=== PATIENT | male | born 1995 | race Caucasian/White ===

== ENCOUNTER 2018-02-07 17:59 | Emergency (ER) | payer OTHER ==
[2018-02-07 18:03] VITALS: TEMP 97.9
[2018-02-07] MEDS ORDERED: SODIUM CHLORIDE 0.9% 1,000 ML IV STA (19:49)
[2018-02-07] MEDS ORDERED: ONDANSETRON 4 MG/2 ML VIAL IVP STA (19:49)
[2018-02-07] MEDS ORDERED: FAMOTIDINE 20 MG/2 ML VIAL IV STA (19:49)
--- NOTE | 2018-02-07 19:52 | ED ---
Abdominal Pain HPI - General Chief Complaint: Abdominal Pain Stated Complaint: VOMITING, SORE THROAT AND CHEST PAIN Time Seen by Provider: 02/07/18 19:42 Source: patient Mode of arrival: ambulatory Limitations: no limitations - History of Present Illness Initial Comments: 22-year-old male patient presents to the emergency department today for evaluation of vomiting and upper abdominal pain. Patient states that he has been vomiting since yesterday evening. States that he had several episodes of vomiting throughout the night and it continued until 5 PM today. Patient states that his vomitus contained a black material. He denies any constipation or diarrhea. Denies any hematochezia or melena. Denies any fevers or chills. Denies any recent travel or ingestion of questionable foods. Patient denies any history of acid reflux. Patient is tolerating Mountain Dew in the room at this time. Patient denies any recent rash, shortness breath, chest pain, back pain, numbness, tingling, dizziness, weakness, hematuria, dysuria, urinary urgency, urinary frequency, headache, visual changes, or any other complaints. - Related Data Home Medications Medication Instructions Recorded Confirmed ALPRAZolam [Xanax] 0.5 mg PO DAILY PRN 02/07/18 02/07/18 Previous Rx's Medication Instructions Recorded Omeprazole [PriLOSEC] 20 mg PO AC-BRKFST #30 cap 02/07/18 Ondansetron [Zofran ODT] 4 mg PO Q8HR PRN #10 tab 02/07/18 Allergies Allergy/AdvReac Type Severity Reaction Status Date / Time No Known Allergies Allergy Verified 02/07/18 19:50 Review of Systems ROS Statement: Those systems with pertinent positive or pertinent negative responses have been documented in the HPI. ROS Other: All systems not noted in ROS Statement are negative. Past Medical History Past Medical History: No Reported History Additional Past Medical History / Comment(s): scolosis History of Any Multi-Drug Resistant Organisms: None Reported Past Surgical History: Appendectomy Past Psychological History: ADD/ADHD, Anxiety, Depression Smoking Status: Current every day smoker Past Alcohol Use History: Rare Past Drug Use History: Marijuana General Exam Limitations: no limitations General appearance: alert, in no apparent distress, other (This is a well- developed, well-nourished adult male patient in no acute distress. Vital signs upon presentation are temperature 97.9F, pulse 77, respirations 18, blood pressure 141/89, pulse ox 95% on room air.) Eye exam: Present: normal appearance, PERRL, EOMI. Absent: scleral icterus, conjunctival injection, periorbital swelling ENT exam: Present: normal exam, normal oropharynx, mucous membranes moist Respiratory exam: Present: normal lung sounds bilaterally. Absent: respiratory distress, wheezes, rales, rhonchi, stridor Cardiovascular Exam: Present: regular rate, normal rhythm, normal heart sounds. Absent: systolic murmur, diastolic murmur, rubs, gallop, clicks GI/Abdominal exam: Present: soft, normal bowel sounds. Absent: distended, tenderness, guarding, rebound, rigid Neurological exam: Present: alert, oriented X3, CN II-XII intact Psychiatric exam: Present: normal affect, normal mood Skin exam: Present: warm, dry, intact, normal color. Absent: rash Course Vital Signs 02/07/18 02/07/18 18:01 23:15 Temperature 97.9 F Pulse Rate 77 65 Respiratory 18 16 Rate Blood Pressure 141/89 142/89 O2 Sat by Pulse 95 98 Oximetry Medical Decision Making - Medical Decision Making 22-year-old male patient percents to the emergency department today for evaluation of upper abdominal pain and vomiting. Physical examination did reveal some mild midepigastric tenderness. Labs reviewed and showed a white blood cell count of 19.2, platelet count of 531, glucose 105, lipase of 499. Urine showed 1+ protein, 2+ ketones, 1+ bilirubin, rare bacteria, and few mucus. We did perform ultrasound of the upper abdomen which showed no acute abnormalities. I did discuss findings with the patient and discussed that he most likely has a mild pancreatitis. At this time patient denies any significant alcohol intake, states last time he drank any alcohol was new years Kim. Patient will be discharged home with instructions to increase fluids. He is instructed to follow-up with a drapery hanger for further evaluation. Patient will also be given Prilosec once daily. He is instructed to return here immediately for any new, worsening, or concerning symptoms. He verbalizes understanding and agrees with this plan. - Lab Data Result diagrams: 02/07/18 19:47 02/07/18 19:47 Lab Results 02/07/18 02/07/18 02/07/18 Range/Units 19:47 19:47 19:47 WBC 19.2 H (4.0-11.0) k/uL RBC 5.54 (4.30-5.90) m/uL Hgb 15.9 (13.0-17.5) gm/dL Hct 46.0 (39.0-53.0) % MCV 83.0 (80.0-100.0) fL MCH 28.7 (25.0-35.0) pg MCHC 34.6 (31.0-37.0) g/dL RDW 12.8 (11.5-15.5) % Plt Count 531 H (150-450) k/uL Neutrophils % 81 % Lymphocytes % 13 % Monocytes % 5 % Eosinophils % 1 % Basophils % 0 % Neutrophils # 15.5 H (1.3-7.7) k/uL Lymphocytes # 2.4 (1.0-4.8) k/uL Monocytes # 0.9 (0-1.0) k/uL Eosinophils # 0.2 (0-0.7) k/uL Basophils # 0.0 (0-0.2) k/uL Sodium 143 (137-145) mmol/L Potassium 3.9 (3.5-5.1) mmol/L Chloride 98 (98-107) mmol/L Carbon Dioxide 28 (22-30) mmol/L Anion Gap 17 mmol/L BUN 11 (9-20) mg/dL Creatinine 0.98 (0.66-1.25) mg/dL Est GFR (CKD-EPI)AfAm >90 (>60 ml/min/1.73 sqM) Est GFR (CKD-EPI)NonAf >90 (>60 ml/min/1.73 sqM) Glucose 105 H (74-99) mg/dL Calcium 10.2 (8.4-10.2) mg/dL Total Bilirubin 0.9 (0.2-1.3) mg/dL AST 19 (17-59) U/L ALT 28 (21-72) U/L Alkaline Phosphatase 73 (38-126) U/L Total Protein 8.0 (6.3-8.2) g/dL Albumin 4.8 (3.5-5.0) g/dL Amylase 109 (30-110) U/L Lipase 499 H (23-300) U/L Urine Color Yellow Urine Appearance Clear (Clear) Urine pH 6.0 (5.0-8.0) Ur Specific Singer 1.025 (1.001-1.035) Urine Protein 1+ H (Negative) Urine Glucose (UA) Negative (Negative) Urine Ketones 2+ H (Negative) Urine Blood Negative (Negative) Urine Nitrite Negative (Negative) Urine Bilirubin 1+ H (Negative) Urine Urobilinogen 3.0 (<2.0) mg/dL Ur Leukocyte Esterase Negative (Negative) Urine RBC <1 (0-5) /hpf Urine WBC 1 (0-5) /hpf Ur Squamous Epith Cells <1 (0-4) /hpf Urine Bacteria Rare H (None) /hpf Hyaline Casts 1 (0-2) /lpf Urine Mucus Few H (None) /hpf - Radiology Data Radiology results: report reviewed, image reviewed Ultrasound of the abdomen was performed. Report was reviewed in its entirety. Impression by Dr. Ryan shows negative right upper quadrant abdominal sonogram. No gallstones or dilated ducts. Disposition Clinical Impression: Pancreatitis Disposition: HOME SELF-CARE Condition: Good Instructions: Pancreatitis (ED) Additional Instructions: Increase fluids. Follow-up is as possible for recheck. Return here immediately for any new, worsening, or concerning symptoms. Prescriptions: Omeprazole [PriLOSEC] 20 mg PO AC-BRKFST #30 cap Ondansetron [Zofran ODT] 4 mg PO Q8HR PRN #10 tab PRN Reason: Nausea Is patient prescribed a controlled substance at d/c from ED?: No Referrals: Lisa Tomlinson MD [Primary Care Provider] - 1-2 days Elyssa Moody MD [STAFF PHYSICIAN] - 1-2 days Time of Disposition: 23:01
[2018-02-07 20:01] LABS: Basophils % (A) 0 %; Eosinophils # (A) 0.2 k/uL (0-0.7); Eosinophils % (A) 1 %; HGB 15.9 gm/dL (13.0-17.5); Lymphocytes # (A) 2.4 k/uL (1.0-4.8); Lymphocytes % (A) 13 %; MCH 28.7 pg (25.0-35.0); MCHC 34.6 g/dL (31.0-37.0); Monocytes # (A) 0.9 k/uL (0-1.0); Monocytes % (A) 5 %; Neutrophils # (A) 15.5 k/uL (1.3-7.7); Neutrophils % (A) 81 %; Platelet Count 531 k/uL (150-450); RBC 5.54 m/uL (4.30-5.90); RDW 12.8 % (11.5-15.5); WBC 19.2 k/uL (4.0-11.0)
[2018-02-07 20:04] LABS: Appearance,Urine Clear (Clear); Bacteria,Urine Rare /hpf; Bilirubin,Urine 1+ (Negative); Blood,Urine Negative (Negative); Color,Urine Yellow; Glucose,Urine (UA) Negative (Negative); Hyaline Casts,Urine 1 /lpf (0-2); Ketones,Urine 2+ (Negative); Leukocyte Esterase,Urine Negative (Negative); Mucus,Urine Few /hpf; Nitrite,Urine Negative (Negative); Protein,Urine 1+ (Negative); RBC,Urine <1 /hpf (0-5); Specific Gravity,Urine 1.025 (1.001-1.035); Squamous Epithelial Cell,Urine <1 /hpf (0-4); WBC,Urine 1 /hpf (0-5)
[2018-02-07 20:15] LABS: ALT 28 U/L (21-72); AST 19 U/L (17-59); Albumin 4.8 g/dL (3.5-5.0); Alkaline Phosphatase 73 U/L (38-126); Amylase 109 U/L (30-110); Anion Gap 17 mmol/L; Blood Urea Nitrogen 11 mg/dL (9-20); Calcium 10.2 mg/dL (8.4-10.2); Carbon Dioxide 28 mmol/L (22-30); Chloride 98 mmol/L (98-107); Glucose 105 mg/dL (74-99); Lipase 499 U/L (23-300); Potassium 3.9 mmol/L (3.5-5.1); Sodium 143 mmol/L (137-145); Total Bilirubin 0.9 mg/dL (0.2-1.3)
--- NOTE | 2018-02-07 22:20 | US ---
EXAMINATION TYPE: US abdomen limited DATE OF EXAM: 02/07/2018 COMPARISON: NONE CLINICAL HISTORY: Pain. RUQ pain and vomiting. EXAM MEASUREMENTS: Liver Length: 18.0 cm Gallbladder Wall: 0.3 cm CBD: 0.4 cm Right Kidney: 10.1 x 4.2 x 4.0 cm Pancreas: Tail obscured by overlying bowel gas Liver: Increased attenuation Gallbladder: appears anechoic Evidence for sonographic Morejon's sign: No CBD: wnl Right Kidney: No hydronephrosis or masses seen IMPRESSION: Negative right upper quadrant abdominal sonogram. No gallstones or dilated ducts.
[2018-02-07] MEDS ORDERED: KETOROLAC 30 MG/ML 1 ML VIAL IVP STA (22:27)
[2018-02-07] MEDS ORDERED: ONDANSETRON 4 MG ODT STARTER PACK 2 TAB BTL PO STA (23:01)
[2018-02-07 23:15] VITALS: BP 142/89; PULSE 65; RESP 16
== END 2018-02-07 23:20 | disposition home or self-care (01) ==
LOC: EC 17:59
DX: K85.90 Acute pancreatitis without necrosis or infection, unspecified (principal); F17.200 Nicotine dependence, unspecified, uncomplicated
CPT/HCPCS: 99284; 96374; 96375 ×2; 96361; 36415; 80053; 82150; 83690; 85025; 81001; 76705; J2405; J1885; S0119

== ENCOUNTER 2018-07-31 05:36 | Emergency (ER) | payer OTHER ==
[2018-07-31] MEDS ORDERED: ALBUTEROL NEBULIZED 2.5 MG/3 ML INHALATION STA (06:25)
[2018-07-31] MEDS ORDERED: FAMOTIDINE 20 MG/2 ML VIAL IV STA (06:25)
--- NOTE | 2018-07-31 06:29 | ED ---
General Adult HPI - General Source: patient Mode of arrival: ambulatory Limitations: no limitations - History of Present Illness -: hour(s) Severity scale (1-10): 0 Improves with: none Worsens with: none Associated Symptoms: cough, nausea/vomiting Treatments Prior to Arrival: none <Adam Waters - Last Filed: 07/31/18 06:25> <Dante Jaffe - Last Filed: 07/31/18 07:45> - General Chief complaint: GI Bleed Stated complaint: Vomiting Blood Time Seen by Provider: 07/31/18 06:19 - History of Present Illness Initial comments: This patient is a 22-year-old man who presents after he had vomiting with what he describes as coffee-ground material and was concerned about GI bleeding. The patient states that he was feeling like he may have some bronchitis going on. He has had congestion, cough, and a little bit of wheezing. He also has had a few episodes of posttussive emesis and then tonight at work had one of these that involved in a coffee-ground material. Patient denies abdominal pain. No change in bowel movements. No dark tarry stools. (Adam Waters) - Related Data Home Medications Medication Instructions Recorded Confirmed ALPRAZolam [Xanax] 0.5 mg PO DAILY PRN 02/07/18 02/07/18 Previous Rx's Medication Instructions Recorded Omeprazole [PriLOSEC] 20 mg PO AC-BRKFST #30 cap 02/07/18 Ondansetron [Zofran ODT] 4 mg PO Q8HR PRN #10 tab 02/07/18 Famotidine [Pepcid] 20 mg PO BID #30 tablet 07/31/18 Allergies Allergy/AdvReac Type Severity Reaction Status Date / Time No Known Allergies Allergy Verified 07/31/18 05:54 Review of Systems ROS Other: All systems not noted in ROS Statement are negative. Constitutional: Denies: fever, chills, weakness Respiratory: Reports: cough, wheezes. Denies: dyspnea, hemoptysis Cardiovascular: Denies: chest pain, palpitations, syncope Gastrointestinal: Reports: hematemesis. Denies: abdominal pain, nausea, diarrhea, melena, hematochezia Genitourinary: Denies: dysuria, hematuria Musculoskeletal: Denies: back pain Skin: Denies: rash Neurological: Denies: headache <JtAdam - Last Filed: 07/31/18 06:25> ROS Other: All systems not noted in ROS Statement are negative. <Dante Jaffe - Last Filed: 07/31/18 07:45> ROS Statement: Those systems with pertinent positive or pertinent negative responses have been documented in the HPI. Past Medical History Past Medical History: No Reported History Additional Past Medical History / Comment(s): scoliosis, History of Any Multi-Drug Resistant Organisms: None Reported Past Surgical History: Appendectomy Past Psychological History: ADD/ADHD, Anxiety, Depression Smoking Status: Current every day smoker Past Alcohol Use History: Occasional Past Drug Use History: Marijuana <JtAdam - Last Filed: 07/31/18 06:25> General Exam Limitations: no limitations General appearance: alert, in no apparent distress Head exam: Present: atraumatic, normocephalic Eye exam: Present: normal appearance. Absent: scleral icterus, conjunctival injection ENT exam: Present: normal oropharynx Neck exam: Present: normal inspection Respiratory exam: Present: wheezes. Absent: respiratory distress, rales, rhonchi, stridor Cardiovascular Exam: Present: regular rate, normal rhythm, normal heart sounds. Absent: systolic murmur, diastolic murmur, rubs, gallop GI/Abdominal exam: Present: soft. Absent: distended, tenderness, guarding, rebound, mass Extremities exam: Present: normal inspection, normal capillary refill. Absent: pedal edema, calf tenderness Back exam: Present: normal inspection. Absent: CVA tenderness (R), CVA tenderness (L) Neurological exam: Present: alert Skin exam: Present: warm, dry, intact, normal color, rash (There is tinea versicolor to the bilateral shoulders.) <JtAdam - Last Filed: 07/31/18 06:25> Vital Signs 07/31/18 07/31/18 07/31/18 05:49 07:16 07:28 Temperature 99.5 F Pulse Rate 88 92 92 Respiratory 17 Rate Blood Pressure 136/81 O2 Sat by Pulse 99 Oximetry Medical Decision Making <JtAdam - Last Filed: 07/31/18 06:25> - Lab Data Result diagrams: 07/31/18 06:45 10/16/18 06:45 <Dante Jaffe - Last Filed: 07/31/18 07:45> - Medical Decision Making Patient was signed out to me by previous shift physician. Briefly, patient is a 22-year-old male presents with 2 weeks of fatigue and malaise. States that over the past couple days he's been having bouts of coffee-ground emesis. Patient's had about 2-3 episodes. As any epigastric pain. Laboratory evaluation was obtained showing no acute processes. He does however have a mild leukocytosis of 13.8 with thrombocytosis. There is suspicion that there is an acute inflammatory process occurring was likely secondary to stress from vomiting. There is strong clinical suspicion patient is having coffee-ground emesis secondary to ulcer versus gastritis. Basic metabolic panel was obtained. Previous physician ordered Pepcid. X-ray shows no acute processes. Discussed with patient that his findings warrant evaluation by [facility]. Patient states he will follow-up. Told to return if he has any worsening symptoms. (Dante Jaffe) - Lab Data Lab Results 07/31/18 07/31/18 Range/Units 06:45 06:45 WBC 13.8 H (4.0-11.0) k/uL RBC 5.30 (4.30-5.90) m/uL Hgb 14.5 (13.0-17.5) gm/dL Hct 43.9 (39.0-53.0) % MCV 82.8 (80.0-100.0) fL MCH 27.4 (25.0-35.0) pg MCHC 33.1 (31.0-37.0) g/dL RDW 13.7 (11.5-15.5) % Plt Count 480 H (150-450) k/uL Neutrophils % 64 % Lymphocytes % 25 % Monocytes % 5 % Eosinophils % 5 % Basophils % 0 % Neutrophils # 8.9 H (1.3-7.7) k/uL Lymphocytes # 3.4 (1.0-4.8) k/uL Monocytes # 0.7 (0-1.0) k/uL Eosinophils # 0.7 (0-0.7) k/uL Basophils # 0.1 (0-0.2) k/uL Sodium 139 (137-145) mmol/L Potassium 4.3 (3.5-5.1) mmol/L Chloride 108 H (98-107) mmol/L Carbon Dioxide 22 (22-30) mmol/L Anion Gap 9 mmol/L BUN 11 (9-20) mg/dL Creatinine 0.81 (0.66-1.25) mg/dL Est GFR (CKD-EPI)AfAm >90 (>60 ml/min/1.73 sqM) Est GFR (CKD-EPI)NonAf >90 (>60 ml/min/1.73 sqM) Glucose 80 (74-99) mg/dL Calcium 9.9 (8.4-10.2) mg/dL Disposition <Adam Waters - Last Filed: 07/31/18 06:25> Is patient prescribed a controlled substance at d/c from ED?: No Time of Disposition: 07:43 <Dante Jaffe - Last Filed: 07/31/18 07:45> Clinical Impression: Coffee ground emesis Disposition: HOME SELF-CARE Condition: Good Instructions: Gastrointestinal Bleeding (ED) Prescriptions: Famotidine [Pepcid] 20 mg PO BID #30 tablet Referrals: Lisa Tomlinson MD [Primary Care Provider] - 1-2 days Sunil Reynaga MD [STAFF PHYSICIAN] - 1-2 days
[2018-07-31 06:56] LABS: Basophils # (A) 0.1 k/uL (0-0.2); Basophils % (A) 0 %; Eosinophils # (A) 0.7 k/uL (0-0.7); Eosinophils % (A) 5 %; HCT 43.9 % (39.0-53.0); HGB 14.5 gm/dL (13.0-17.5); Lymphocytes # (A) 3.4 k/uL (1.0-4.8); Lymphocytes % (A) 25 %; MCH 27.4 pg (25.0-35.0); MCHC 33.1 g/dL (31.0-37.0); MCV 82.8 fL (80.0-100.0); Monocytes # (A) 0.7 k/uL (0-1.0); Monocytes % (A) 5 %; Neutrophils # (A) 8.9 k/uL (1.3-7.7); Neutrophils % (A) 64 %; Platelet Count 480 k/uL (150-450); RDW 13.7 % (11.5-15.5); WBC 13.8 k/uL (4.0-11.0)
[2018-07-31 07:04] LABS: Anion Gap 9 mmol/L; Blood Urea Nitrogen 11 mg/dL (9-20); Calcium 9.9 mg/dL (8.4-10.2); Carbon Dioxide 22 mmol/L (22-30); Chloride 108 mmol/L (98-107); Glucose 80 mg/dL (74-99); Potassium 4.3 mmol/L (3.5-5.1); Sodium 139 mmol/L (137-145)
--- NOTE | 2018-07-31 07:34 | XR ---
EXAMINATION TYPE: XR chest 2V DATE OF EXAM: 07/31/2018 COMPARISON: NONE HISTORY: Coffee-ground emesis and generalized weakness. TECHNIQUE: Frontal and lateral views of the chest are obtained. FINDINGS: There is no focal air space opacity, pleural effusion, or pneumothorax seen. The cardiac silhouette size is within normal limits. The osseous structures are intact. IMPRESSION: No acute cardiopulmonary process.
[2018-07-31 08:02] VITALS: BP 136/82; PULSE 80; RESP 18; TEMP 98.1
== END 2018-07-31 08:02 | disposition home or self-care (01) ==
LOC: EC 05:36
DX: R11.2 Nausea with vomiting, unspecified (principal); D72.829 Elevated white blood cell count, unspecified; D47.3 Essential (hemorrhagic) thrombocythemia; R05 Cough; R06.2 Wheezing; R09.89 Other specified symptoms and signs involving the circulatory and respiratory systems; F17.200 Nicotine dependence, unspecified, uncomplicated
CPT/HCPCS: 36415; 71046; 80048; 85025; 86850; 86900; 86901; 94640; 96374; 99285

== ENCOUNTER → 2019-01-28 | Outpatient (CLI) | payer OTHER ==
--- NOTE | 2019-01-28 18:10 | US ---
EXAMINATION TYPE: US abdomen limited DATE OF EXAM: 01/28/2019 COMPARISON: CT from 2016 limited abdominal ultrasound February 07, 2018 CLINICAL HISTORY: R10.11 R upper quad pain. RUQ and epigastric pain x 2 weeks. EXAM MEASUREMENTS: Liver Length: 16.8 cm Gallbladder Wall: 0.33 cm CBD: 0.5 cm Right Kidney: 9.9 x 5.6 x 4.0 cm Limited study due to body habitus and bowel gas. Pancreas: Partially obscured by bowel gas. Liver: Increased attenuation Gallbladder: Appears wnl. Internal echoes appear to be artifact. Evidence for sonographic Morejon's sign: No CBD: wnl Right Kidney: No hydronephrosis or masses seen Visualized pancreas shows no mass or ductal dilatation. Visualized liver is heterogeneously hyperecho ic consistent with diffuse fatty infiltration. IVC is seen near hepatic dome. Gallbladder is seen wit hout shadowing mobile gallstones. Limited images right kidney show no gross hydronephrosis. IMPRESSION: Diffuse fatty infiltration of liver redemonstrated. No gallstones or secondary ultrasound evidence for acute cholecystitis.
== END | disposition home or self-care (01) ==
LOC: RADUSMAIN 16:54
PROVIDERS: ATTEND Internal Medicine
DX: K76.0 Fatty (change of) liver, not elsewhere classified (principal)
CPT/HCPCS: 76705

== ENCOUNTER 2021-05-31 07:23 | Emergency (ER) | payer OTHER ==
[2021-05-31 07:30] VITALS: TEMP 97.6
--- NOTE | 2021-05-31 07:55 | ED ---
General Adult HPI - General Chief complaint: Chest Pain Stated complaint: L arm numbness, Chest pain Time Seen by Provider: 05/31/21 07:31 Source: patient Mode of arrival: wheelchair Limitations: no limitations - History of Present Illness Initial comments: Dictation was produced using [employer] dictation software. please excuse any grammatical, word or spelling errors. Chief Complaint: 25-year-old male in no past medical history presents emergency department for chest pain History of Present Illness: Should 25-year-old male who presents emergency department for chest pain. Patient states that he was in his left chest shoulder area and was associated with paresthesias to the left upper extremity. He states he had symptoms yesterday. Denies any symptoms currently. No strong family history of coronary artery disease or heart disease. Patient used to smoke cigarettes. He doesn't take any other medications. Denies any com orbidities. States that his symptoms are not associated with diaphoresis, shortness of breath or nausea. He took 2 aspirins prior to arrival. Patient is worried that he had a heart attack The ROS documented in this emergency department record has been reviewed and confirmed by me. Those systems with pertinent positive or negative responses have been documented in the HPI. All other systems are other negative and/or noncontributory. PHYSICAL EXAM: General Impression: Alert and oriented x3, not in acute distress HEENT: Normocephalic atraumatic, extra-ocular movements intact, pupils equal and reactive to light bilaterally, mucous membranes moist. Cardiovascular: Heart regular rate and rhythm Chest: Able to complete full sentences, no retractions, no tachypnea Abdomen: abdomen soft, non-tender, non-distended, no organomegaly Musculoskeletal: Pulses present and equal in all extremities, no peripheral edema Motor: no focal deficits noted Neurological: CN II-XII grossly intact, no focal motor or sensory deficits noted Skin: Intact with no visualized rashes Psych: Normal affect and mood ED course: 25-year-old well-appearing male presents emergency department for atypical chest pain with typical features. Vital Signs upon arrival are within acceptable limits. Besides some history of tobacco use he does not have any major risk factors. Symptoms are atypical in nature. Weight concerning symptom was paresthesias to the left upper extremity. Patient is not tachycardic and not hypoxic. He does not have any complaints of shortness of breath. EKGs benign. Laboratory evaluation obtained. CBC, coag panel, metabolic panel is negative. Troponin is negative. Patient observed in emergency department for approximately 1 hour 30 minutes. Patient reevaluated at bedside at 8:50 AM found to be stable medical condition. At this point there is no high-risk features. Patient's pain is atypical. Patient will be discharged. EKG interpretation: Ventricular rate 89, normal sinus rhythm, MS interval 162, QRS 80, QTC 411. No MS prolongation, no QTC prolongation, no ST or T-wave changes noted. Overall, this EKG is unremarkable - Related Data Home Medications Medication Instructions Recorded Confirmed Aspirin 324 mg PO ONCE PRN 05/31/21 05/31/21 buPROPion HCL [Wellbutrin SR] 100 mg PO DAILY 05/31/21 05/31/21 Allergies Allergy/AdvReac Type Severity Reaction Status Date / Time No Known Allergies Allergy Verified 05/31/21 08:14 Review of Systems ROS Statement: Those systems with pertinent positive or pertinent negative responses have been documented in the HPI. ROS Other: All systems not noted in ROS Statement are negative. Past Medical History Past Medical History: No Reported History Additional Past Medical History / Comment(s): scoliosis History of Any Multi-Drug Resistant Organisms: None Reported Past Surgical History: Appendectomy Past Psychological History: ADD/ADHD, Anxiety, Depression Smoking Status: Former smoker Past Alcohol Use History: Occasional Past Drug Use History: Marijuana General Exam Limitations: no limitations Course Vital Signs 05/31/21 07:27 Temperature 97.6 F Pulse Rate 84 Respiratory 18 Rate Blood Pressure 136/87 O2 Sat by Pulse 97 Oximetry Medical Decision Making - Lab Data Result diagrams: 05/31/21 07:48 05/31/21 07:48 Lab Results 05/31/21 05/31/21 05/31/21 Range/Units 07:48 07:48 07:48 WBC 11.2 H (3.8-10.6) k/uL RBC 5.03 (4.30-5.90) m/uL Hgb 15.1 (13.0-17.5) gm/dL Hct 44.8 (39.0-53.0) % MCV 89.1 (80.0-100.0) fL MCH 30.0 (25.0-35.0) pg MCHC 33.7 (31.0-37.0) g/dL RDW 13.0 (11.5-15.5) % Plt Count 457 H (150-450) k/uL MPV 6.6 Neutrophils % 65 % Lymphocytes % 24 % Monocytes % 6 % Eosinophils % 3 % Basophils % 0 % Neutrophils # 7.3 (1.3-7.7) k/uL Lymphocytes # 2.6 (1.0-4.8) k/uL Monocytes # 0.7 (0-1.0) k/uL Eosinophils # 0.4 (0-0.7) k/uL Basophils # 0.1 (0-0.2) k/uL PT 10.8 (9.0-12.0) sec INR 1.0 (<1.2) APTT 26.4 (22.0-30.0) sec Sodium 138 (137-145) mmol/L Potassium 4.4 (3.5-5.1) mmol/L Chloride 108 H (98-107) mmol/L Carbon Dioxide 20 L (22-30) mmol/L Anion Gap 10 mmol/L BUN 13 (9-20) mg/dL Creatinine 0.87 (0.66-1.25) mg/dL Est GFR (CKD-EPI)AfAm >90 (>60 ml/min/1.73 sqM) Est GFR (CKD-EPI)NonAf >90 (>60 ml/min/1.73 sqM) Glucose 100 H (74-99) mg/dL Calcium 9.7 (8.4-10.2) mg/dL Magnesium 1.9 (1.6-2.3) mg/dL Total Bilirubin 0.2 (0.2-1.3) mg/dL AST 22 (17-59) U/L ALT 24 (4-49) U/L Alkaline Phosphatase 65 (38-126) U/L Troponin I (0.000-0.034) ng/mL Total Protein 7.0 (6.3-8.2) g/dL Albumin 4.2 (3.5-5.0) g/dL 05/31/21 Range/Units 07:48 WBC (3.8-10.6) k/uL RBC (4.30-5.90) m/uL Hgb (13.0-17.5) gm/dL Hct (39.0-53.0) % MCV (80.0-100.0) fL MCH (25.0-35.0) pg MCHC (31.0-37.0) g/dL RDW (11.5-15.5) % Plt Count (150-450) k/uL MPV Neutrophils % % Lymphocytes % % Monocytes % % Eosinophils % % Basophils % % Neutrophils # (1.3-7.7) k/uL Lymphocytes # (1.0-4.8) k/uL Monocytes # (0-1.0) k/uL Eosinophils # (0-0.7) k/uL Basophils # (0-0.2) k/uL PT (9.0-12.0) sec INR (<1.2) APTT (22.0-30.0) sec Sodium (137-145) mmol/L Potassium (3.5-5.1) mmol/L Chloride (98-107) mmol/L Carbon Dioxide (22-30) mmol/L Anion Gap mmol/L BUN (9-20) mg/dL Creatinine (0.66-1.25) mg/dL Est GFR (CKD-EPI)AfAm (>60 ml/min/1.73 sqM) Est GFR (CKD-EPI)NonAf (>60 ml/min/1.73 sqM) Glucose (74-99) mg/dL Calcium (8.4-10.2) mg/dL Magnesium (1.6-2.3) mg/dL Total Bilirubin (0.2-1.3) mg/dL AST (17-59) U/L ALT (4-49) U/L Alkaline Phosphatase (38-126) U/L Troponin I <0.012 (0.000-0.034) ng/mL Total Protein (6.3-8.2) g/dL Albumin (3.5-5.0) g/dL Disposition Clinical Impression: Chest pain Disposition: HOME SELF-CARE Condition: Good Instructions (If sedation given, give patient instructions): Chest Pain (ED) Is patient prescribed a controlled substance at d/c from ED?: No Referrals: Lisa Tomlinson MD [Primary Care Provider] - 1-2 days
[2021-05-31 07:57] LABS: Basophils # (A) 0.1 k/uL (0-0.2); Basophils % (A) 0 %; Eosinophils # (A) 0.4 k/uL (0-0.7); Eosinophils % (A) 3 %; HCT 44.8 % (39.0-53.0); HGB 15.1 gm/dL (13.0-17.5); Lymphocytes # (A) 2.6 k/uL (1.0-4.8); Lymphocytes % (A) 24 %; MCHC 33.7 g/dL (31.0-37.0); MCV 89.1 fL (80.0-100.0); Mean Platelet Volume 6.6; Monocytes # (A) 0.7 k/uL (0-1.0); Monocytes % (A) 6 %; Neutrophils # (A) 7.3 k/uL (1.3-7.7); Neutrophils % (A) 65 %; Platelet Count 457 k/uL (150-450); RBC 5.03 m/uL (4.30-5.90); WBC 11.2 k/uL (3.8-10.6)
[2021-05-31 08:08] LABS: Partial Thromboplastin Time 26.4 sec (22.0-30.0); Prothrombin Time 10.8 sec (9.0-12.0)
[2021-05-31 08:10] LABS: ALT 24 U/L (4-49); AST 22 U/L (17-59); African American GFR (CKD) >90 (>60 ml/min/1.73 sqM); Albumin 4.2 g/dL (3.5-5.0); Alkaline Phosphatase 65 U/L (38-126); Anion Gap 10 mmol/L; Blood Urea Nitrogen 13 mg/dL (9-20); Calcium 9.7 mg/dL (8.4-10.2); Carbon Dioxide 20 mmol/L (22-30); Chloride 108 mmol/L (98-107); Glucose 100 mg/dL (74-99); Magnesium 1.9 mg/dL (1.6-2.3); Non-African American GFR(CKD) >90 (>60 ml/min/1.73 sqM); Potassium 4.4 mmol/L (3.5-5.1); Sodium 138 mmol/L (137-145); Total Bilirubin 0.2 mg/dL (0.2-1.3)
--- NOTE | 2021-05-31 08:11 | XR ---
EXAMINATION TYPE: XR chest 1V portable DATE OF EXAM: 05/31/2021 Comparison: 05/31/2018 Clinical History: 25-year-old male chest pain Findings: The cardiomediastinal silhouette, aorta, and pulmonary vasculature are within normal limits. Lungs and pleural spaces are clear. Impression: No acute cardiopulmonary process.
[2021-05-31 09:13] VITALS: RESP 16
[2021-05-31 09:19] VITALS: BP 114/72; PULSE 70
== END 2021-05-31 09:19 | disposition home or self-care (01) ==
LOC: EC 07:23
DX: R07.89 Other chest pain (principal); R20.2 Paresthesia of skin; F32.9 Major depressive disorder, single episode, unspecified; F41.9 Anxiety disorder, unspecified; F90.9 Attention-deficit hyperactivity disorder, unspecified type; F12.90 Cannabis use, unspecified, uncomplicated; Z79.899 Other long term (current) drug therapy; Z87.891 Personal history of nicotine dependence; Z79.82 Long term (current) use of aspirin; Z90.49 Acquired absence of other specified parts of digestive tract
CPT/HCPCS: 36415; 71045; 80053; 83735; 84484; 85025; 85610; 85730; 93005; 99285

== ENCOUNTER 2023-08-11 07:18 | Inpatient (IN) | payer OTHER ==
[2023-08-11] MEDS ORDERED: SODIUM CHLORIDE 0.9% 1,000 ML IV STA ×2 (07:50→08:53)
[2023-08-11] MEDS ORDERED: PANTOPRAZOLE 40 MG/10 ML VIAL IVP STA (07:50)
[2023-08-11] MEDS ORDERED: ONDANSETRON 4 MG/2 ML VIAL IVP STA (07:50)
[2023-08-11] MEDS ORDERED: KETOROLAC 15 MG/ML 1 ML VIAL IVP STA (07:50)
--- NOTE | 2023-08-11 07:55 | ED ---
General Adult HPI - General Chief complaint: Abdominal Pain Stated complaint: Lower left abdominal pain Time Seen by Provider: 08/11/23 07:41 Source: patient, RN notes reviewed, old records reviewed Mode of arrival: ambulatory Limitations: no limitations - History of Present Illness Initial comments: Patient is a 28-year-old male who presents emergency Department complaining of left lower quadrant abdominal pain. It's been present more or less constant for the last 3 days. Has been having nausea as well as had 2 episodes of nonbilious nonbloody emesis yesterday. Has a history of an appendectomy. Endorses diarrhea. Endorses a mild cough as well as headache. No known sick contacts. Denies fevers. Denies any difficulty in urination. Did present to urgent care 2 days ago where they performed a urine study which was unremarkable including no blood. Presents emergency department today because they instructed him to present to the ER for evaluation of the pain got worse which did over the last 24 hours. Prescription is an achy pain localized to the left lower quadrant. No radiation. No flank pain. Has some generalized back discomfort but no focal back discomfort. States he is still having nonbloody diarrhea as well as flatus. No concern for constipation. Presents for further evaluation at this time. - Related Data Home Medications Medication Instructions Recorded Confirmed Aspirin 324 mg PO ONCE PRN 05/31/21 05/31/21 buPROPion HCL [Wellbutrin SR] 100 mg PO DAILY 05/31/21 05/31/21 Allergies Allergy/AdvReac Type Severity Reaction Status Date / Time No Known Allergies Allergy Verified 08/11/23 07:39 Review of Systems ROS Statement: Those systems with pertinent positive or pertinent negative responses have been documented in the HPI. Review of Systems: CONST: Denies fever EYES: Denies blurry vision ENT: Denies nasal congestion C/V: Denies Chest pain RESP: Denies shortness of breath GI: Endorses abdominal pain : Denies dysuria SKIN: Denies rash. MSK: Denies joint pain. NEURO: Denies headache ROS Other: All systems not noted in ROS Statement are negative. Past Medical History Past Medical History: No Reported History Additional Past Medical History / Comment(s): scoliosis History of Any Multi-Drug Resistant Organisms: None Reported Past Surgical History: Appendectomy Past Psychological History: ADD/ADHD, Anxiety, Depression Smoking Status: Vaper Past Alcohol Use History: Occasional Past Drug Use History: Marijuana General Exam - General Exam Comments Initial Comments: General: Appears in mild distress secondary to abdominal discomfort HEAD: Normal with no signs of head trauma. EYES: PERRLA, EOMI, conjunctiva normal, no discharge. ENT: Hearing grossly intact, normal oropharynx. RESPIRATORY: Clear breath sounds bilaterally. No wheezes, rales, or rhonchi. C/V: Regular rate and rhythm. S1 and S2 auscultated, peripheral pulses 2+ and intact throughout ABD: Abdomen is soft, nondistended. Tender to palpation in the left lower quadrant. No guarding. No rebound tenderness. No peritoneal signs. No CVA tenderness to percussion. EXT: Normal range of motion, no obvious deformity SKIN: No rashes or lesions observed on exposed skin. NEURO: Alert and oriented 4. Limitations: no limitations Course Vital Signs 08/11/23 08/11/23 07:38 08:53 Temperature 98.1 F 100.3 F H Pulse Rate 110 H 101 H Respiratory 20 17 Rate Blood Pressure 119/69 105/69 O2 Sat by Pulse 99 96 Oximetry Medical Decision Making - Medical Decision Making Was pt. sent in by a medical professional or institution (, PA, HARDWARE TRAINER, urgent care, hospital, or snf...) When possible be specific @ -Instructed by urgent care to present to the emergency department if pain worsens. Did you speak to anyone other than the patient for history (EMS, parent, family, police, friend...)? What history was obtained from this source @ -No Did you review nursing and triage notes (agree or disagree)? Why? @ -I reviewed and agree with nursing and triage notes Were old charts reviewed (outside hosp., previous admission, EMS record, old EKG, old radiological studies, urgent care reports/EKG's, snf records)? Report findings @ -Charts reviewed. Differential Diagnosis (chest pain, altered mental status, abdominal pain women, abdominal pain men, vaginal bleeding, weakness, fever, dyspnea, syncope, headache, dizziness, GI bleed, back pain, seizure, CVA, palpatations, mental health, musculoskeletal)? @ -Differential Abdominal Pain Men: Appendicitis, cholecystitis, diverticulosis, ischemic bowel, pancreatitis, hepatitis, UTI, gastroenteritis, AAA, incarcerated hernia, bowel obstruction, constipation, inflammatory bowel, hepatitis, peptic ulcer disease, splenic infarction, perforated viscus, testicular torsion, this is not meant to be an all-inclusive list EKG interpreted by me (3pts min.). @ -None done X-rays interpreted by me (1pt min.). @ -None done CT interpreted by me (1pt min.). @ -CT abdomen and pelvis reveals diverticulitis with microperforation. U/S interpreted by me (1pt. min.). @ -None done What testing was considered but not performed or refused? (CT, X-rays, U/S, labs)? Why? @ -None What meds were considered but not given or refused? Why? @ -None Did you discuss the management of the patient with other professionals (professionals i.e. , PA, HARDWARE TRAINER, lab, RT, psych nurse, social work supervisor, supervisor dials, teacher, sports development officer, rn case manager)? Give summary @ -I contacted the on-call surgeon, Dr. Justin who accepted the patient onto her service and was in agreement with the plan. Was smoking cessation discussed for >3mins.? @ -No Was critical care preformed (if so, how long)? @ -No Were there social determinants of health that impacted care today? How? (Homelessness, low income, unemployed, alcoholism, drug addiction, transportatio n, low edu. Level, literacy, decrease access to med. care, long term, rehab)? @ -No Was there de-escalation of care discussed even if they declined (Discuss DNR or withdrawal of care, Hospice)? DNR status @ -No What co-morbidities impacted this encounter? (DM, HTN, Smoking, COPD, CAD, Cancer, CVA, ARF, Chemo, Hep., AIDS, mental health diagnosis, sleep apnea, morbid obesity)? @ -None Was patient admitted / discharged? Hospital course, mention meds given and route, prescriptions, significant lab abnormalities, going to OR and other pertinent info. @ -Based on the patient's presentation and physical exam, I'm concerned for acute intra-abdominal process for the patient's current symptoms. We will obtain abdominal laboratory studies, as well as CT abdomen and pelvis. Patient will be administered IV fluids, Zofran, Protonix, Toradol for pain. Vital signs other than mild tachycardia are within acceptable limits. Patient is in agreement with this plan. Patient's laboratory studies are remarkable for leukocytosis of 23. Lactic acid within normal limits. Remainder the labs within acceptable limits. Patient's CT imaging reveals diverticulitis with a microperforation. After the patient. We will obtain blood cultures, as well as to the patient on Zosyn. He'll be made nothing by mouth. He was in agreement this plan. I contacted the on-call surgeon, Dr. Justin who accepted the patient onto her service and was in agreement with the plan. Undiagnosed new problem with uncertain prognosis? @ -No Drug Therapy requiring intensive monitoring for toxicity (Heparin, Nitro, Insulin, Cardizem)? @ -No Were any procedures done? @ -No Diagnosis/symptom? @ -Diverticulitis with microperforation Acute, or Chronic, or Acute on Chronic? @ -Acute Uncomplicated (without systemic symptoms) or Complicated (systemic symptoms)? @ -Complicated Side effects of treatment? @ -none Exacerbation, Progression, or Severe Exacerbation] @ -no Poses a threat to life or bodily function? @ -Yes - Lab Data Result diagrams: 08/11/23 07:58 08/11/23 07:58 Lab Results 08/11/23 08/11/23 08/11/23 Range/Units 07:58 07:58 07:58 WBC 23.7 H (3.8-10.6) k/uL RBC 4.85 (4.30-5.90) m/uL Hgb 14.2 (13.0-17.5) gm/dL Hct 41.9 (39.0-53.0) % MCV 86.5 (80.0-100.0) fL MCH 29.4 (25.0-35.0) pg MCHC 33.9 (31.0-37.0) g/dL RDW 13.1 (11.5-15.5) % Plt Count 455 H (150-450) k/uL MPV 6.9 Neutrophils % 87 % Lymphocytes % 6 % Monocytes % 6 % Eosinophils % 1 % Basophils % 0 % Neutrophils # 20.6 H (1.3-7.7) k/uL Lymphocytes # 1.3 (1.0-4.8) k/uL Monocytes # 1.4 H (0-1.0) k/uL Eosinophils # 0.2 (0-0.7) k/uL Basophils # 0.0 (0-0.2) k/uL PT 12.1 (10.0-12.5) sec INR 1.1 (<1.2) APTT 29.2 (22.0-30.0) sec Sodium (137-145) mmol/L Potassium (3.5-5.1) mmol/L Chloride (98-107) mmol/L Carbon Dioxide (22-30) mmol/L Anion Gap mmol/L BUN (9-20) mg/dL Creatinine (0.66-1.25) mg/dL Est GFR (CKD-EPI)AfAm (>60 ml/min/1.73 sqM) Est GFR (CKD-EPI)NonAf (>60 ml/min/1.73 sqM) Glucose (74-99) mg/dL Plasma Lactic Acid Mitul (0.7-2.0) mmol/L Calcium (8.4-10.2) mg/dL Total Bilirubin (0.2-1.3) mg/dL AST (17-59) U/L ALT (4-49) U/L Alkaline Phosphatase (38-126) U/L Total Protein (6.3-8.2) g/dL Albumin (3.5-5.0) g/dL Amylase (30-110) U/L Lipase (23-300) U/L Urine Color Yellow Urine Appearance Clear (Clear) Urine pH 6.0 (5.0-8.0) Ur Specific Olin 1.020 (1.001-1.035) Urine Protein Trace (Negative) Urine Glucose (UA) Negative (Negative) Urine Ketones 1+ (Negative) Urine Blood Negative (Negative) Urine Nitrite Negative (Negative) Urine Bilirubin Negative (Negative) Urine Urobilinogen <2.0 (<2.0) mg/dL Ur Leukocyte Esterase Negative (Negative) 08/11/23 08/11/23 Range/Units 07:58 07:58 WBC (3.8-10.6) k/uL RBC (4.30-5.90) m/uL Hgb (13.0-17.5) gm/dL Hct (39.0-53.0) % MCV (80.0-100.0) fL MCH (25.0-35.0) pg MCHC (31.0-37.0) g/dL RDW (11.5-15.5) % Plt Count (150-450) k/uL MPV Neutrophils % % Lymphocytes % % Monocytes % % Eosinophils % % Basophils % % Neutrophils # (1.3-7.7) k/uL Lymphocytes # (1.0-4.8) k/uL Monocytes # (0-1.0) k/uL Eosinophils # (0-0.7) k/uL Basophils # (0-0.2) k/uL PT (10.0-12.5) sec INR (<1.2) APTT (22.0-30.0) sec Sodium 136 L (137-145) mmol/L Potassium 4.3 (3.5-5.1) mmol/L Chloride 106 (98-107) mmol/L Carbon Dioxide 19 L (22-30) mmol/L Anion Gap 11 mmol/L BUN 10 (9-20) mg/dL Creatinine 0.72 (0.66-1.25) mg/dL Est GFR (CKD-EPI)AfAm >90 (>60 ml/min/1.73 sqM) Est GFR (CKD-EPI)NonAf >90 (>60 ml/min/1.73 sqM) Glucose 94 (74-99) mg/dL Plasma Lactic Acid Mitul 0.8 (0.7-2.0) mmol/L Calcium 9.2 (8.4-10.2) mg/dL Total Bilirubin 1.0 (0.2-1.3) mg/dL AST 23 (17-59) U/L ALT 36 (4-49) U/L Alkaline Phosphatase 53 (38-126) U/L Total Protein 6.8 (6.3-8.2) g/dL Albumin 3.8 (3.5-5.0) g/dL Amylase 46 (30-110) U/L Lipase 31 (23-300) U/L Urine Color Urine Appearance (Clear) Urine pH (5.0-8.0) Ur Specific Olin (1.001-1.035) Urine Protein (Negative) Urine Glucose (UA) (Negative) Urine Ketones (Negative) Urine Blood (Negative) Urine Nitrite (Negative) Urine Bilirubin (Negative) Urine Urobilinogen (<2.0) mg/dL Ur Leukocyte Esterase (Negative) Disposition Clinical Impression: Diverticulitis Disposition: ADMITTED IP TO THIS HOSP Condition: Stable Referrals: None,Stated [Primary Care Provider] - 1-2 days Time of Disposition: 08:52
[2023-08-11 08:25] LABS: Basophils % (A) 0 %; Eosinophils # (A) 0.2 k/uL (0-0.7); Eosinophils % (A) 1 %; HCT 41.9 % (39.0-53.0); HGB 14.2 gm/dL (13.0-17.5); Lymphocytes # (A) 1.3 k/uL (1.0-4.8); Lymphocytes % (A) 6 %; MCH 29.4 pg (25.0-35.0); MCHC 33.9 g/dL (31.0-37.0); MCV 86.5 fL (80.0-100.0); Mean Platelet Volume 6.9; Monocytes # (A) 1.4 k/uL (0-1.0); Monocytes % (A) 6 %; Neutrophils # (A) 20.6 k/uL (1.3-7.7); Neutrophils % (A) 87 %; Platelet Count 455 k/uL (150-450); RBC 4.85 m/uL (4.30-5.90); RDW 13.1 % (11.5-15.5); WBC 23.7 k/uL (3.8-10.6)
[2023-08-11 08:32] LABS: ALT 36 U/L (4-49); AST 23 U/L (17-59); African American GFR (CKD) >90 (>60 ml/min/1.73 sqM); Albumin 3.8 g/dL (3.5-5.0); Alkaline Phosphatase 53 U/L (38-126); Amylase 46 U/L (30-110); Anion Gap 11 mmol/L; Blood Urea Nitrogen 10 mg/dL (9-20); Calcium 9.2 mg/dL (8.4-10.2); Carbon Dioxide 19 mmol/L (22-30); Chloride 106 mmol/L (98-107); Glucose 94 mg/dL (74-99); Lipase 31 U/L (23-300); Non-African American GFR(CKD) >90 (>60 ml/min/1.73 sqM); Potassium 4.3 mmol/L (3.5-5.1); Sodium 136 mmol/L (137-145); Total Protein 6.8 g/dL (6.3-8.2)
--- NOTE | 2023-08-11 08:51 | CT ---
EXAMINATION TYPE: CT abdomen pelvis w con CT DLP: 1527.6 mGycm, Automated exposure control for dose reduction was used. DATE OF EXAM: 08/11/2023 8:35 AM COMPARISON: 12/24/2015 CLINICAL INDICATION:Male, 28 years old with history of abdominal pain, LLQ; LLQ pain TECHNIQUE: Axial CT of the ;CT abdomen pelvis w con;Sagittal and coronal reformats were created on a separate workstation. Contrast used:100 mL of Isovue 300 with IV Contrast, (none if empty) Oral contrast used: without Oral Contrast (none if empty) FINDINGS: LOWER CHEST: Unremarkable ABDOMEN LIVER: Diffusely hypoattenuating parenchyma. GALLBLADDER AND BILE DUCTS: Unremarkable. PANCREAS: Unremarkable. SPLEEN: Unremarkable. ADRENAL GLANDS: Unremarkable. KIDNEYS AND URETERS: No evidence of hydronephrosis or renal calculus. The ureters are unremarkable. PELVIS BLADDER: Unremarkable REPRODUCTIVE: Unremarkable. ABDOMEN & PELVIS STOMACH AND BOWEL: No evidence of bowel obstruction. Sigmoid colon wall thickening with diverticula. There is fat stranding changes around these do diverticula with microperforation with small focus of gas PERITONEUM/RETROPERITONEUM: Small focus of pneumoperitoneum near the acute diverticulitis. No organiz ing fluid collections. VASCULATURE: No evidence of aortic aneurysm. MUSCULOSKELETAL: No acute osseous abnormalities LYMPH NODES: No gross evidence for lymphadenopathy. SOFT TISSUE/ABDOMINAL WALL: Fat-containing umbilical hernia. IMPRESSION: 1. Sigmoid colon diverticulitis with microperforation. No organizing fluid collection at this time. 2. Hepatic steatosis.
[2023-08-11 08:54] LABS: Appearance,Urine Clear (Clear); Bilirubin,Urine Negative (Negative); Color,Urine Yellow; Glucose,Urine (UA) Negative (Negative); INR 1.1 (<1.2); Ketones,Urine 1+ (Negative); Partial Thromboplastin Time 29.2 sec (22.0-30.0); Protein,Urine Trace (Negative); Prothrombin Time 12.1 sec (10.0-12.5)
[2023-08-11] MEDS ORDERED: ACETAMINOPHEN TAB 500 MG TAB PO STA (08:54)
[2023-08-11 08:55] LABS: Blood,Urine Negative (Negative); Leukocyte Esterase,Urine Negative (Negative); Nitrite,Urine Negative (Negative); Urobilinogen,Urine <2.0 mg/dL (<2.0)
[2023-08-11] MEDS ORDERED: NALOXONE 0.4 MG/ML 1 ML VIAL IV PRN (09:02)
[2023-08-11] MEDS ORDERED: ACETAMINOPHEN TAB 325 MG TAB PO PRN (09:02)
[2023-08-11] MEDS ORDERED: ONDANSETRON 4 MG/2 ML VIAL IVP PRN (09:02)
[2023-08-11] MEDS: PIPERACILLIN-TAZOBACTAM 3.375 GM in SODIUM CHLORIDE 0.9% 100 ML IVPB SCH ×2 (09:32→16:37)
[2023-08-11] MEDS: MORPHINE SULFATE 4 MG/ML SYRINGE IV PRN ×3 (10:22→19:46)
--- NOTE | 2023-08-11 10:23 | P.GSHP ---
History of Present Illness H&P Date: 08/11/23 CHIEF COMPLAINT: Left lower quadrant abdominal pain HISTORY OF PRESENT ILLNESS: This is a 28-year-old male who presented to hospital with complaints of left lower quadrant abdominal pain 3 days. He also has been having some nausea and vomiting. He reports not having a bowel movement for 4 days. He reports that his stools are very usually diarrhea since the age of 15. He denies any blood in his stools. Denies any prior history of diverticulitis. He has never had a colonoscopy. No family history of diverticulitis, Crohn's or ulcerative colitis. Patient had a computed tomography scan abdomen and pelvis that showed evidence of sigmoid diverticulitis with microperforation. He has a low-grade fever, mildly tachycardic and elevated white count. He is started on IV antibiotics IV fluids. Admitted to surgical service for diverticulitis with microperforation. PAST MEDICAL HISTORY: See list. PAST SURGICAL HISTORY: Appendectomy MEDICATIONS: See list. ALLERGIES: See list. SOCIAL HISTORY: No illicit drug use. vaps. Occasional alcohol use REVIEW OF SYSTEMS: CONSTITUTIONAL: Denies fever or chills. HEENT: Denies blurred vision, vision changes, or eye pain. Denies hemoptysis ENDOCRINE: Denies heat or cold intolerance. CARDIOVASCULAR: Denies chest pain or pressure. RESPIRATORY: No shortness of breath. GASTROINTESTINAL: Denies abdominal pain. Denies nausea or vomiting. NEURO: Denies history of seizures. PSYCH: No depression or suicidal ideation HEMATOLOGIC: Denies bleeding disorders. LYMPHATIC: The patient denies any lumps and bumps around the neck. GENITOURINARY: Denies any blood in urine or increased urinary frequency. MUSCULOSKELETAL: Denies myalgias. Denies joint swelling. Denies decreased range of motion beyond patients baseline. SKIN: Denies pruitis. Denies rash. PHYSICAL EXAM: VITAL SIGNS: Reviewed GENERAL: Well-developed in no acute distress. HEENT: No sclera icterus. Extraocular movements grossly intact. Moist buccal mucosa. Head is atraumatic, normocephalic. Hears conversational speech. No nasal drainage. NECK: Supple without lymphadenopathy. CHEST: Non-labored respirations and equal bilateral excursions. CARDIOVASCULAR: Palpable 2+ radial pulses. ABDOMEN: Soft. Nondistended. Tenderness to palpation in the left lower quadra nt MUSCULOSKELETAL: No clubbing or cyanosis. NEUROLOGIC: No focal or lateralizing signs. Cranial nerves II through XII grossly intact. PSYCH: Appropriate affect. Alert and oriented to person, place and time. SKIN: Well perfused. Good skin turgor. LABORATORY DATA: WBC 20.7 Hgb 14.2 platelets 455 Sodium 136 potassium 4.3 creatinine 0.72 Urinalysis negative Influenza, RSV and COVID-19 not detected IMAGING: Computed tomography scan abdomen and pelvis reports sigmoid colon diverticulitis with microperforation. No organizing fluid collection at this time. Hepatic steatosis. ASSESSMENT: 1. Sigmoid colon diverticulitis with microperforation 2. Sepsis 3. History of chronic diarrhea PLAN: -Continue to monitor patient closely -Continue IV antibiotic management at this time and add IV Flagyl -Continue IV fluids -Keep patient nothing by mouth except ice chips and popsicles -Repeat labs in a.m. -DVT prophylaxis subcu heparin and GI prophylaxis pepcid Physician Closing Manager note has been reviewed by physician. Signing provider agrees with the documented findings, assessment, and plan of care. Past Medical History Past Medical History: No Reported History Additional Past Medical History / Comment(s): scoliosis History of Any Multi-Drug Resistant Organisms: None Reported Past Surgical History: Appendectomy Past Psychological History: ADD/ADHD, Anxiety, Depression Smoking Status: Vaper Past Alcohol Use History: Occasional Past Drug Use History: Marijuana Medications and Allergies Home Medications Medication Instructions Recorded Confirmed Type No Known Home Medications 08/11/23 08/11/23 History Allergies Allergy/AdvReac Type Severity Reaction Status Date / Time No Known Allergies Allergy Verified 08/11/23 09:11 Surgical - Exam Vital Signs Temp Pulse Resp BP Pulse Ox 98.1 F 110 H 20 119/69 99 08/11/23 07:38 08/11/23 07:38 08/11/23 07:38 08/11/23 07:38 08/11/23 07:38 Results - Labs 08/11/23 07:58 08/11/23 07:58 Abnormal Lab Results - Last 24 Hours (Table) 08/11/23 08/11/23 Range/Units 07:58 07:58 WBC 23.7 H (3.8-10.6) k/uL Plt Count 455 H (150-450) k/uL Neutrophils # 20.6 H (1.3-7.7) k/uL Monocytes # 1.4 H (0-1.0) k/uL Sodium 136 L (137-145) mmol/L Carbon Dioxide 19 L (22-30) mmol/L Diabetes panel 08/11/23 Range/Units 07:58 Sodium 136 L (137-145) mmol/L Potassium 4.3 (3.5-5.1) mmol/L Chloride 106 (98-107) mmol/L Carbon Dioxide 19 L (22-30) mmol/L BUN 10 (9-20) mg/dL Creatinine 0.72 (0.66-1.25) mg/dL Glucose 94 (74-99) mg/dL Calcium 9.2 (8.4-10.2) mg/dL AST 23 (17-59) U/L ALT 36 (4-49) U/L Alkaline Phosphatase 53 (38-126) U/L Total Protein 6.8 (6.3-8.2) g/dL Albumin 3.8 (3.5-5.0) g/dL Calcium panel 08/11/23 Range/Units 07:58 Calcium 9.2 (8.4-10.2) mg/dL Albumin 3.8 (3.5-5.0) g/dL Pituitary panel 08/11/23 Range/Units 07:58 Sodium 136 L (137-145) mmol/L Potassium 4.3 (3.5-5.1) mmol/L Chloride 106 (98-107) mmol/L Carbon Dioxide 19 L (22-30) mmol/L BUN 10 (9-20) mg/dL Creatinine 0.72 (0.66-1.25) mg/dL Glucose 94 (74-99) mg/dL Calcium 9.2 (8.4-10.2) mg/dL Adrenal panel 08/11/23 Range/Units 07:58 Sodium 136 L (137-145) mmol/L Potassium 4.3 (3.5-5.1) mmol/L Chloride 106 (98-107) mmol/L Carbon Dioxide 19 L (22-30) mmol/L BUN 10 (9-20) mg/dL Creatinine 0.72 (0.66-1.25) mg/dL Glucose 94 (74-99) mg/dL Calcium 9.2 (8.4-10.2) mg/dL Total Bilirubin 1.0 (0.2-1.3) mg/dL AST 23 (17-59) U/L ALT 36 (4-49) U/L Alkaline Phosphatase 53 (38-126) U/L Total Protein 6.8 (6.3-8.2) g/dL Albumin 3.8 (3.5-5.0) g/dL
[2023-08-11] MEDS: SODIUM CHLORIDE 0.9% 1,000 ML IV SCH ×2 (10:27→18:45)
[2023-08-11] MEDS: metroNIDAZOLE-NS PMX 500 MG in SALINE 1 100ML.BAG IVPB SCH ×2 (14:54→19:48)
[2023-08-11] MEDS: KETOROLAC 15 MG/ML 1 ML VIAL IVP PRN ×2 (16:32→22:53)
[2023-08-11] MEDS: HEPARIN SODIUM,PORCINE 5,000 UNIT/ML 1 ML VIAL SQ SCH (16:35)
[2023-08-12] MEDS: metroNIDAZOLE-NS PMX 500 MG in SALINE 1 100ML.BAG IVPB SCH ×5 (01:15→23:56)
[2023-08-12] MEDS: HEPARIN SODIUM,PORCINE 5,000 UNIT/ML 1 ML VIAL SQ SCH ×2 (01:15→08:16)
[2023-08-12] MEDS: PIPERACILLIN-TAZOBACTAM 3.375 GM in SODIUM CHLORIDE 0.9% 100 ML IVPB SCH ×3 (01:17→17:07)
[2023-08-12] MEDS: SODIUM CHLORIDE 0.9% 1,000 ML IV SCH ×3 (01:55→17:44)
[2023-08-12] MEDS: FAMOTIDINE 20 MG/2 ML VIAL IV SCH (08:16)
[2023-08-12] MEDS: MORPHINE SULFATE 4 MG/ML SYRINGE IV PRN ×3 (08:16→16:12)
[2023-08-12 09:46] LABS: Blood Urea Nitrogen 10.8 mg/dL (9.0-27.0); Calcium 8.9 mg/dL (8.7-10.3); Carbon Dioxide 20.2 mmol/L (21.6-31.8); Chloride 108 mmol/L (96-109); Glucose 79 mg/dL (70-110); Potassium 4.3 mmol/L (3.5-5.5); Sodium 140 mmol/L (135-145)
[2023-08-12 10:17] LABS: Basophils # (A) 0.03 X 10*3/uL (0.00-0.10); Basophils % (A) 0.2 %; Eosinophils # (A) 0.38 X 10*3/uL (0.04-0.35); Eosinophils % (A) 2.7 %; HCT 38.4 % (39.6-50.0); HGB 12.6 d/dL (13.0-17.0); Lymphocytes # (A) 1.64 X 10*3/uL (0.90-5.00); Lymphocytes % (A) 11.6 %; MCH 28.7 pg (27.0-32.0); MCHC 32.8 d/dL (32.0-37.0); MCV 87.5 FL (80.0-97.0); Mean Platelet Volume 9.2 FL (9.5-12.2); Monocytes # (A) 1.45 X 10*3/uL (0.20-1.00); Monocytes % (A) 10.3 %; NRBC Per 100 WBC 0 X 10*3/uL (0.00-0.01); Neutrophils # (A) 10.55 X 10*3/uL (1.80-7.70); Neutrophils % (A) 74.8 %; Platelet Count 377 X 10*3/uL (140-440); RBC 4.39 X 10*6/uL (4.40-5.60); RDW 13.3 % (11.5-14.5); WBC 14.11 X 10*3/uL (4.50-10.00)
[2023-08-12] MEDS: KETOROLAC 15 MG/ML 1 ML VIAL IVP PRN (11:44)
--- NOTE | 2023-08-12 13:32 | P.PN ---
Subjective Progress Note Date: 08/12/23 Reports abdominal pain wax and wane. WBC trending down. Fever abated. Continue antibiotics. Will start clear liquid diet pending improvement of abdominal pain. Non-narcotic pain adjustment. CBC and BMP ordered. Continue flagyl and zosyn. Objective - Vital Signs Vital signs: Vital Signs Temp 98.2 F 08/12/23 08:00 Pulse 87 08/12/23 08:00 Resp 16 08/12/23 08:00 BP 142/87 08/12/23 08:00 Pulse Ox 97 08/12/23 08:00 FiO2 Intake & Output 08/11/23 08/12/23 08/12/23 18:59 06:59 18:59 Weight 106.594 kg 106.594 kg Other: # Voids 0 - Labs CBC & Chem 7: 08/12/23 04:35 08/12/23 04:35 Labs: Abnormal Lab Results - Last 24 Hours (Table) 08/12/23 08/12/23 Range/Units 04:35 04:35 WBC 14.11 H (4.50-10.00) X 10*3/uL RBC 4.39 L (4.40-5.60) X 10*6/uL Hgb 12.6 L (13.0-17.0) d/dL Hct 38.4 L (39.6-50.0) % MPV 9.2 L (9.5-12.2) FL Neutrophils # 10.55 H (1.80-7.70) X 10*3/uL Monocytes # 1.45 H (0.20-1.00) X 10*3/uL Eosinophils # 0.38 H (0.04-0.35) X 10*3/uL Carbon Dioxide 20.2 L (21.6-31.8) mmol/L
[2023-08-12] MEDS ORDERED: HYDROmorphone 1 MG/ML 1 ML SYRINGE IVP PRN (13:33)
[2023-08-12] MEDS: ACETAMINOPHEN IV (For NPO) 1,000 MG in EMPTY BAG 1 BAG IVPB SCH ×2 (14:49→19:37)
[2023-08-12] MEDS: KETOROLAC 15 MG/ML 1 ML VIAL IVP SCH ×2 (17:39→23:56)
[2023-08-12] MEDS ORDERED: ONDANSETRON 4 MG/2 ML VIAL IM STA (22:38)
[2023-08-12] MEDS ORDERED: ONDANSETRON 4 MG/2 ML VIAL IVP STA (22:52)
[2023-08-13] MEDS: ACETAMINOPHEN IV (For NPO) 1,000 MG in EMPTY BAG 1 BAG IVPB SCH ×2 (01:00→07:57)
[2023-08-13] MEDS: PIPERACILLIN-TAZOBACTAM 3.375 GM in SODIUM CHLORIDE 0.9% 100 ML IVPB SCH ×3 (01:00→17:27)
[2023-08-13] MEDS: SODIUM CHLORIDE 0.9% 1,000 ML IV SCH ×4 (01:01→20:20)
[2023-08-13] MEDS: metroNIDAZOLE-NS PMX 500 MG in SALINE 1 100ML.BAG IVPB SCH ×2 (05:31→11:57)
[2023-08-13] MEDS: KETOROLAC 15 MG/ML 1 ML VIAL IVP SCH ×4 (05:32→17:26)
[2023-08-13] MEDS: FAMOTIDINE 20 MG/2 ML VIAL IV SCH (07:57)
[2023-08-13] MEDS: ONDANSETRON 4 MG/2 ML VIAL IVP PRN ×2 (07:57→18:05)
[2023-08-13 09:40] LABS: BUN/Creat Ratio 10.11 Ratio (12.00-20.00); Blood Urea Nitrogen 9.1 mg/dL (9.0-27.0); Calcium 9.3 mg/dL (8.7-10.3); Carbon Dioxide 20.6 mmol/L (21.6-31.8); Chloride 107 mmol/L (96-109); Glucose 70 mg/dL (70-110); Potassium 4.3 mmol/L (3.5-5.5); Sodium 140 mmol/L (135-145)
[2023-08-13 09:47] LABS: Basophils # (A) 0.04 X 10*3/uL (0.00-0.10); Basophils % (A) 0.4 %; Eosinophils # (A) 0.34 X 10*3/uL (0.04-0.35); Eosinophils % (A) 3.3 %; HGB 13.2 d/dL (13.0-17.0); Lymphocytes # (A) 1.41 X 10*3/uL (0.90-5.00); Lymphocytes % (A) 13.8 %; MCH 28.5 pg (27.0-32.0); MCV 86.4 FL (80.0-97.0); Mean Platelet Volume 8.7 FL (9.5-12.2); Monocytes # (A) 0.81 X 10*3/uL (0.20-1.00); Monocytes % (A) 7.9 %; NRBC Per 100 WBC 0 X 10*3/uL (0.00-0.01); Neutrophils # (A) 7.58 X 10*3/uL (1.80-7.70); Neutrophils % (A) 74.3 %; Platelet Count 462 X 10*3/uL (140-440); RBC 4.63 X 10*6/uL (4.40-5.60); RDW 13.2 % (11.5-14.5); WBC 10.21 X 10*3/uL (4.50-10.00)
--- NOTE | 2023-08-13 12:43 | P.PN ---
Subjective Progress Note Date: 08/13/23 He has no further fevers. Has nausea with flagyl. WBC near normal. Stopped flagyl. Start clear liquid diet. Continue hospitalization with disposition 24 hrs to 48 hrs. Objective - Vital Signs Vital signs: Vital Signs Temp 98.7 F 08/13/23 07:52 Pulse 51 L 08/13/23 07:52 Resp 15 08/13/23 07:52 BP 127/83 08/13/23 07:52 Pulse Ox 100 08/13/23 07:52 FiO2 Intake & Output 08/12/23 08/13/23 08/13/23 18:59 06:59 18:59 Intake Total 0 Balance 0 Intake: Oral 0 Other: # Voids 3 2 - Labs CBC & Chem 7: 08/13/23 05:41 08/13/23 05:41 Labs: Abnormal Lab Results - Last 24 Hours (Table) 08/13/23 08/13/23 Range/Units 05:41 05:41 WBC 10.21 H (4.50-10.00) X 10*3/uL Plt Count 462 H (140-440) X 10*3/uL MPV 8.7 L (9.5-12.2) FL Carbon Dioxide 20.6 L (21.6-31.8) mmol/L Anion Gap 12.40 H (4.00-12.00) mmol/L BUN/Creatinine Ratio 10.11 L (12.00-20.00) Ratio Microbiology - Last 24 Hours (Table) 08/11/23 08:58 Blood Culture - Preliminary Blood 08/11/23 08:58 Blood Culture - Preliminary Blood
[2023-08-13] MEDS ORDERED: SCOPOLAMINE 1 MG/72 HR PATCH TRANSDERM SCH (21:00)
[2023-08-14] MEDS: KETOROLAC 15 MG/ML 1 ML VIAL IVP SCH ×3 (00:03→12:27)
[2023-08-14] MEDS: PIPERACILLIN-TAZOBACTAM 3.375 GM in SODIUM CHLORIDE 0.9% 100 ML IVPB SCH ×2 (00:03→12:27)
[2023-08-14] MEDS: SODIUM CHLORIDE 0.9% 1,000 ML IV SCH (05:40)
[2023-08-14 09:05] LABS: BUN/Creat Ratio 10.88 Ratio (12.00-20.00); Basophils # (A) 0.03 X 10*3/uL (0.00-0.10); Basophils % (A) 0.3 %; Blood Urea Nitrogen 8.7 mg/dL (9.0-27.0); Calcium 9.1 mg/dL (8.7-10.3); Carbon Dioxide 20.1 mmol/L (21.6-31.8); Chloride 107 mmol/L (96-109); Eosinophils # (A) 0.26 X 10*3/uL (0.04-0.35); Eosinophils % (A) 2.9 %; Glucose 72 mg/dL (70-110); HGB 12.6 d/dL (13.0-17.0); Lymphocytes # (A) 1.51 X 10*3/uL (0.90-5.00); Lymphocytes % (A) 16.9 %; MCH 28.2 pg (27.0-32.0); MCHC 33.2 d/dL (32.0-37.0); Mean Platelet Volume 8.7 FL (9.5-12.2); Monocytes # (A) 0.71 X 10*3/uL (0.20-1.00); NRBC Per 100 WBC 0 X 10*3/uL (0.00-0.01); Neutrophils # (A) 6.38 X 10*3/uL (1.80-7.70); Neutrophils % (A) 71.6 %; Platelet Count 458 X 10*3/uL (140-440); Potassium 4.4 mmol/L (3.5-5.5); RBC 4.47 X 10*6/uL (4.40-5.60); RDW 12.8 % (11.5-14.5); Sodium 140 mmol/L (135-145); WBC 8.92 X 10*3/uL (4.50-10.00)
[2023-08-14] MEDS: IOPAMIDOL CONTRAST (ORAL USE) VIAL PO PRN ×2 (09:57→11:10)
[2023-08-14] MEDS: FAMOTIDINE 20 MG/2 ML VIAL IV SCH (09:57)
[2023-08-14] MEDS: ONDANSETRON 4 MG/2 ML VIAL IVP PRN (10:11)
--- NOTE | 2023-08-14 12:58 | CT ---
EXAMINATION TYPE: CT abdomen pelvis w con CT DLP: 1531.4 mGycm, Automated exposure control for dose reduction was used. DATE OF EXAM: 08/14/2023 12:50 PM COMPARISON: CT abdomen pelvis most recent from 08/11/2023. CLINICAL INDICATION:Male, 28 years old with history of abdominal pain; F/U diverticulitis, with micro perf TECHNIQUE: Standard CT of the abdomen and pelvis following the administration of 100 cc of Isovue 3 00 IV contrast material and oral contrast. Coronal and sagittal reformats were performed. FINDINGS: LOWER CHEST: Unremarkable ABDOMEN LIVER: Diffusely hypoattenuating parenchyma. GALLBLADDER AND BILE DUCTS: Unremarkable. PANCREAS: Unremarkable. SPLEEN: Unremarkable. ADRENAL GLANDS: Unremarkable. KIDNEYS AND URETERS: No evidence of hydronephrosis or renal calculus. The ureters are unremarkable. PELVIS BLADDER: Unremarkable REPRODUCTIVE: Unremarkable. ABDOMEN & PELVIS STOMACH AND BOWEL: No evidence of bowel obstruction. Sigmoid colon wall thickening with diverticula r edemonstrated. There is again stranding fat stranding which is slightly decreased from prior examinat ion. Similar few foci of extraluminal gas posterior to the sigmoid colon (series 201, image 66). No o rganized fluid collection to suggest abscess. Enteric contrast reaches the rectum. No extravasation o f enteric contrast. PERITONEUM/RETROPERITONEUM: Small focus of pneumoperitoneum near the acute diverticulitis. No organiz ing fluid collections. VASCULATURE: No evidence of aortic aneurysm. MUSCULOSKELETAL: No acute osseous abnormalities LYMPH NODES: No gross evidence for lymphadenopathy. SOFT TISSUE/ABDOMINAL WALL: Fat-containing umbilical hernia. IMPRESSION: 1. Redemonstration of sigmoid colon colon diverticulitis with microperforation. No organizing fluid collection at this time. Slightly decreased surrounding inflammatory changes from prior exam. 2. Hepatic steatosis.
--- NOTE | 2023-08-14 14:31 | P.PN ---
Progress Note - Text Progress Note Date: 08/14/23 Patient has been hospitalized from 08/11/2023 until 08/14/2023. Patient to remain off of work until seen by surgeon on 08/22/2023.
--- NOTE | 2023-08-14 14:34 | P.DS ---
Providers Date of admission: 08/11/23 09:02 Expected date of discharge: 08/14/23 Attending physician: Lorena Owens Primary care physician: Stated None Hospital Course: Discharge diagnosis 1. Sigmoid colon diverticulitis with microperforation 2. Sepsis Hospital course This is a 28-year-old male who presented to hospital with complaints of left lower quadrant abdominal pain 3 days. Patient had a computed tomography scan abdomen and pelvis that showed evidence of sigmoid diverticulitis with microperforation. He has a low-grade fever, mildly tachycardic and elevated white count. Patient started on IV antibiotics. Patient's pain has improved. White count has normalized. He is afebrile. He is tolerating diet. He had a repeat computed tomography scan that redemonstrated sigmoid colon diverticulitis with microperforation. No organizing fluid collection at this time. Slightly decreased surrounding inflammatory changes from prior exam. Patient is stable for discharge. He will be discharged with oral antibiotics. Physician Cab Worker note has been reviewed by physician. Signing provider agrees with the documented findings, assessment, and plan of care. Patient Condition at Discharge: Stable Plan - Discharge Summary New Discharge Prescriptions: New Acetaminophen Tab [Tylenol] 1,000 mg PO Q6HR PRN #30 tablet PRN Reason: Pain Amoxic-Pot Clav 875-125Mg [Augmentin 875-125] 1 tab PO Q12HR 10 Days #20 tab Discharge Medication List Acetaminophen Tab [Tylenol] 1,000 mg PO Q6HR PRN #30 tablet 08/14/23 [Rx] Amoxic-Pot Clav 875-125Mg [Augmentin 875-125] 1 tab PO Q12HR 10 Days #20 tab 08/14/23 [Rx] Follow up Appointment(s)/Referral(s): Lorena Owens MD [STAFF PHYSICIAN] - 08/22/23 None,Stated [Primary Care Provider] - 1-2 days Activity/Diet/Wound Care/Special Instructions: Continue a low fiber diet Avoid eating seeds or nuts Patient to remain off of work until seen by surgeon on 08/22/23 Discharge Disposition: HOME SELF-CARE
[2023-08-14 15:11] VITALS: BP 155/89; PULSE 52; RESP 18; TEMP 98.9
== END 2023-08-14 17:31 | disposition home or self-care (01) | DRG 720 ==
LOC: EC 07:18 → 4SSUR 09:02
PROVIDERS: ADMIT Surgery Plastic and Reconstructive Surgery; ATTEND Surgery Plastic and Reconstructive Surgery
DX: A41.9 Sepsis, unspecified organism (principal); K57.20 Diverticulitis of large intestine with perforation and abscess without bleeding; M41.9 Scoliosis, unspecified; F90.9 Attention-deficit hyperactivity disorder, unspecified type; F41.9 Anxiety disorder, unspecified; F32.A Depression, unspecified
CPT/HCPCS: 36415; 74177; 80048; 80053; 81003; 82150; 83605; 83690; 85025; 85610; 85730; 87040; 87636; 96361; 96365; 96366; 96367; 96368; 96372; 96375; 96376; 99285

== ENCOUNTER 2024-03-28 14:31 | Emergency (ER) | payer OTHER ==
[2024-03-28 14:43] VITALS: TEMP 98.8
--- NOTE | 2024-03-28 14:44 | ED ---
Abdominal Pain HPI - General Source: patient, RN notes reviewed Mode of arrival: ambulatory Limitations: no limitations <Marsha Aguilar - Last Filed: 03/28/24 14:43> - General Source: RN notes reviewed, old records reviewed Mode of arrival: ambulatory Limitations: no limitations - History of Present Illness MD Complaint: abdominal pain -: days(s) Location: diffuse, periumbilical, RLQ Radiation: suprapubic Migration to: suprapubic Severity: moderate Severity scale (1-10): 5 Quality: stabbing, aching Consistency: constant Improves With: nothing Worsens With: nothing, vomiting Associated Symptoms: nausea, vomiting, diarrhea Treatments Prior to Arrival: other (0) <Angel Jones - Last Filed: 04/09/24 00:13> - General Stated Complaint: Divirticulitis Time Seen by Provider: 03/28/24 14:43 - History of Present Illness Initial Comments: Quick note: 28-year-old male presenting to the ER with a chief complaint of right-sided abdominal pain. Patient reports this been going on for the past 3 days and endorses associated constipation and diarrhea. He also admits to nausea. Patient has a past medical history significant of diverticulitis and states this pain does feel similar. Denies any fevers but does report chills. (Marsha Aguilar) This is a 28-year-old male to ER for evaluation abdominal pain severe flank pain with inflammation over the lower abdomen right-sided abdominal pain with history of diverticulitis feels like it is return of diverticulitis (Angel Jones) - Related Data Previous Rx's Medication Instructions Recorded Acetaminophen Tab [Tylenol] 1,000 mg PO Q6HR PRN #30 tablet 08/14/23 Amoxic-Pot Clav 875-125Mg 1 tab PO Q12HR 10 Days #20 tab 08/14/23 [Augmentin 875-125] Amoxic-Pot Clav 875-125Mg 1 tab PO Q12HR #20 tablet 03/28/24 [Augmentin 875-125] Allergies Allergy/AdvReac Type Severity Reaction Status Date / Time No Known Allergies Allergy Verified 03/28/24 14:42 Review of Systems ROS Other: All systems not noted in ROS Statement are negative. <Marsha Aguilar - Last Filed: 03/28/24 14:43> ROS Other: All systems not noted in ROS Statement are negative. <Angel Jones - Last Filed: 04/09/24 00:13> ROS Statement: Those systems with pertinent positive or pertinent negative responses have been documented in the HPI. Past Medical History Past Medical History: No Reported History Additional Past Medical History / Comment(s): scoliosis History of Any Multi-Drug Resistant Organisms: None Reported Past Surgical History: Appendectomy Past Psychological History: ADD/ADHD, Anxiety, Depression Smoking Status: Vaper Past Alcohol Use History: Occasional Past Drug Use History: Marijuana <Marsha Aguilar - Last Filed: 03/28/24 14:43> General Exam Limitations: no limitations <Marsha Aguilar - Last Filed: 03/28/24 14:43> General appearance: alert, in no apparent distress Head exam: Present: atraumatic, normocephalic, normal inspection Eye exam: Present: normal appearance, PERRL, EOMI. Absent: scleral icterus, conjunctival injection, periorbital swelling ENT exam: Present: normal exam, mucous membranes moist Neck exam: Present: normal inspection. Absent: tenderness, meningismus, lymphadenopathy Respiratory exam: Present: normal lung sounds bilaterally. Absent: respiratory distress, wheezes, rales, rhonchi, stridor Cardiovascular Exam: Present: regular rate, normal rhythm, normal heart sounds. Absent: systolic murmur, diastolic murmur, rubs, gallop, clicks GI/Abdominal exam: Present: soft, normal bowel sounds. Absent: distended, tenderness, guarding, rebound, rigid Extremities exam: Present: normal inspection, full ROM, normal capillary refill. Absent: tenderness, pedal edema, joint swelling, calf tenderness Back exam: Present: normal inspection Neurological exam: Present: alert, oriented X3, CN II-XII intact Psychiatric exam: Present: normal affect, normal mood Skin exam: Present: warm, dry, intact, normal color. Absent: rash <Angel Jones - Last Filed: 04/09/24 00:13> - General Exam Comments Initial Comments: Visual Physical Exam Vital signs reviewed General: Well-appearing, nontoxic, no acute distress. Head: Normocephalic, atraumatic Eyes: PERRLA, EOMI ENT: Airway patent Chest: Nonlabored breathing Skin: No visual rash, normal skin tone Neuro: Alert and oriented 3 Musculoskeletal: No gross abnormalities (Marsha Aguilar) Course <Angel Jones - Last Filed: 04/09/24 00:13> Vital Signs 03/28/24 03/28/24 14:41 21:53 Temperature 98.8 F Pulse Rate 96 91 Respiratory 16 18 Rate Blood Pressure 134/90 142/87 O2 Sat by Pulse 100 99 Oximetry - Reevaluation(s) Reevaluation #1: 03/28/24 20:40 Medical records reviewed (Angel Jones) Reevaluation #2: 03/28/24 20:40 Patient symptoms are improved here in the emergency department (Angel Chand) Reevaluation #3: 03/28/24 20:40 Patient informed of results and questions answered (Angel Jones) Reevaluation #4: Was pt. sent in by a medical professional or institution (, PA, SIDE GLUER, urgent care, hospital, or penitentiary...) When possible be specific @ -no Did you speak to anyone other than the patient for history (EMS, parent, family, police, friend...)? What history was obtained from this source @ -no Did you review nursing and triage notes (agree or disagree)? Why? @ -agree Are old charts reviewed (outside hosp., previous admission, EMS record, old EKG, old radiological studies, urgent care reports/EKG's, penitentiary records)? Report findings @ -yes Differential Diagnosis (chest pain, altered mental status, abdominal pain women, abdominal pain men, vaginal bleeding, weakness, fever, dyspnea, syncope, headache, dizziness, GI bleed, back pain, seizure, CVA, palpatations, mental h ealth, musculoskeletal)? @ -prior EKG interpreted by me (3pts min.). @ -yes X-rays interpreted by me (1pt min.). @ -no CT interpreted by me (1pt min.). @ -yes positive for acute diverticulitis U/S interpreted by me (1pt. min.). @ -no What testing was considered but not performed or refused? (CT, X-rays, U/S, labs)? Why? @ -none What meds were considered but not given or refused? Why? @ -none Did you discuss the management of the patient with other professionals (professionals i.e. , PA, SIDE GLUER, lab, RT, psych nurse, social work lecturer, mattress weaver, teacher, county records management officer, caseworker)? Give summary @ -no Was smoking cessation discussed for >3mins.? @ -no Was critical care preformed (if so, how long)? @ -no Were there social determinants of health that impacted care today? How? (Homelessness, low income, unemployed, alcoholism, drug addiction, transportation, low edu. Level, literacy, decrease access to med. care, [facility], rehab)? @ -none Was there de-escalation of care discussed even if they declined (Discuss DNR or withdrawal of care, Hospice)? DNR status @ -no What co-morbidities impacted this encounter? (DM, HTN, Smoking, COPD, CAD, Cancer, CVA, ARF, Chemo, Hep., AIDS, mental health diagnosis, sleep apnea, morbid obesity)? @ -none Was patient admitted / discharged? Hospital course, mention meds given and route, prescriptions, significant lab abnormalities, going to OR and other pertinent info. @ - 28 male with diverticulitis, symptoms are improved here in the ER, patient can be discharged home Discharge Undiagnosed new problem with uncertain prognosis? @ -no Drug Therapy requiring intensive monitoring for toxicity (Heparin, Nitro, Insulin, Cardizem)? @ -no Were any procedures done? @ -no Diagnosis/symptom? @ -Acute diverticulitis Acute, or Chronic, or Acute on Chronic? @ -Acute Uncomplicated (without systemic symptoms) or Complicated (systemic symptoms)? @ -Complicated Side effects of treatment? @ -no Exacerbation, Progression, or Severe Exacerbation? @ -exacerbation Poses a threat to life or bodily function? How? (Chest pain, [place], [place], pneumonia, PE, COPD, DKA, ARF, appy, cholecystitis, CVA, Diverticulitis, Homicidal, Suicidal, threat to staff... and all critical care pts) @ -no (Angel Jones) Reevaluation #5: Differential Abdominal Pain Men: Appendicitis, cholecystitis, diverticulosis, ischemic bowel, pancreatitis, hepatitis, UTI, gastroenteritis, AAA, incarcerated hernia, bowel obstruction, co nstipation, inflammatory bowel, hepatitis, peptic ulcer disease, splenic infarction, perforated viscus, testicular torsion, this is not meant to be an all-inclusive list (Angel Jones) Medical Decision Making <Marsha Aguilar - Last Filed: 03/28/24 14:43> - Lab Data Result diagrams: 03/28/24 15:50 03/28/24 15:50 - Radiology Data Radiology results: report reviewed (CT Abdomen pelvis positive for diverticulitis), image reviewed <Angel Jones - Last Filed: 04/09/24 00:13> - Medical Decision Making I performed the quick note portion of this chart. Electronically signed by Marsha Aguilar PA-C (Marsha Aguilar) 28 male with diverticulitis, symptoms are improved here in the ER, patient can be discharged home (Angel Jones) - Lab Data Lab Results 03/28/24 03/28/24 03/28/24 Range/Units 15:50 15:50 15:50 WBC 10.9 H (3.8-10.6) k/uL RBC 5.29 (4.30-5.90) m/uL Hgb 15.2 (13.0-17.5) gm/dL Hct 47.7 (39.0-53.0) % MCV 90.1 (80.0-100.0) fL MCH 28.8 (25.0-35.0) pg MCHC 32.0 (31.0-37.0) g/dL RDW 13.0 (11.5-15.5) % Plt Count 442 (150-450) k/uL MPV 6.8 Neutrophils % 73 % Lymphocytes % 15 % Monocytes % 9 % Eosinophils % 2 % Basophils % 0 % Neutrophils # 8.0 H (1.3-7.7) k/uL Lymphocytes # 1.6 (1.0-4.8) k/uL Monocytes # 1.0 (0-1.0) k/uL Eosinophils # 0.2 (0-0.7) k/uL Basophils # 0.0 (0-0.2) k/uL Sodium 137 (137-145) mmol/L Potassium 4.5 (3.5-5.1) mmol/L Chloride 104 (98-107) mmol/L Carbon Dioxide 25 (22-30) mmol/L Anion Gap 8 mmol/L BUN 8 L (9-20) mg/dL Creatinine 1.00 (0.66-1.25) mg/dL Est GFR (CKD-EPI)AfAm >90 (>60 ml/min/1.73 sqM) Est GFR (CKD-EPI)NonAf >90 (>60 ml/min/1.73 sqM) Glucose 85 (74-99) mg/dL Plasma Lactic Acid Mitul 1.0 (0.7-2.0) mmol/L Calcium 9.8 (8.4-10.2) mg/dL Total Bilirubin 0.6 (0.2-1.3) mg/dL AST 26 (17-59) U/L ALT 45 (4-49) U/L Alkaline Phosphatase 55 (38-126) U/L Total Protein 7.4 (6.3-8.2) g/dL Albumin 4.5 (3.5-5.0) g/dL Amylase 51 (30-110) U/L Lipase 39 (23-300) U/L Urine Color Urine Appearance (Clear) Urine pH (5.0-8.0) Ur Specific [place] (1.001-1.035) Urine Protein (Negative) Urine Glucose (UA) (Negative) Urine Ketones (Negative) Urine Blood (Negative) Urine Nitrite (Negative) Urine Bilirubin (Negative) Urine Urobilinogen (<2.0) mg/dL Ur Leukocyte Esterase (Negative) 03/28/24 Range/Units 20:13 WBC (3.8-10.6) k/uL RBC (4.30-5.90) m/uL Hgb (13.0-17.5) gm/dL Hct (39.0-53.0) % MCV (80.0-100.0) fL MCH (25.0-35.0) pg MCHC (31.0-37.0) g/dL RDW (11.5-15.5) % Plt Count (150-450) k/uL MPV Neutrophils % % Lymphocytes % % Monocytes % % Eosinophils % % Basophils % % Neutrophils # (1.3-7.7) k/uL Lymphocytes # (1.0-4.8) k/uL Monocytes # (0-1.0) k/uL Eosinophils # (0-0.7) k/uL Basophils # (0-0.2) k/uL Sodium (137-145) mmol/L Potassium (3.5-5.1) mmol/L Chloride (98-107) mmol/L Carbon Dioxide (22-30) mmol/L Anion Gap mmol/L BUN (9-20) mg/dL Creatinine (0.66-1.25) mg/dL Est GFR (CKD-EPI)AfAm (>60 ml/min/1.73 sqM) Est GFR (CKD-EPI)NonAf (>60 ml/min/1.73 sqM) Glucose (74-99) mg/dL Plasma Lactic Acid Mitul (0.7-2.0) mmol/L Calcium (8.4-10.2) mg/dL Total Bilirubin (0.2-1.3) mg/dL AST (17-59) U/L ALT (4-49) U/L Alkaline Phosphatase (38-126) U/L Total Protein (6.3-8.2) g/dL Albumin (3.5-5.0) g/dL Amylase (30-110) U/L Lipase (23-300) U/L Urine Color Colorless Urine Appearance Clear (Clear) Urine pH 6.0 (5.0-8.0) Ur Specific [place] 1.001 (1.001-1.035) Urine Protein Negative (Negative) Urine Glucose (UA) Negative (Negative) Urine Ketones Negative (Negative) Urine Blood Negative (Negative) Urine Nitrite Negative (Negative) Urine Bilirubin Negative (Negative) Urine Urobilinogen <2.0 (<2.0) mg/dL Ur Leukocyte Esterase Negative (Negative) Disposition <Marsha Aguilar - Last Filed: 03/28/24 14:43> Is patient prescribed a controlled substance at d/c from ED?: No Time of Disposition: 20:50 <Angel Jones - Last Filed: 04/09/24 00:13> Clinical Impression: Diverticulitis Disposition: HOME SELF-CARE Condition: Fair Instructions (If sedation given, give patient instructions): Diverticulitis (ED) Prescriptions: Amoxic-Pot Clav 875-125Mg [Augmentin 875-125] 1 tab PO Q12HR #20 tablet Referrals: None,Stated [Primary Care Provider] - 1-2 days
[2024-03-28 16:14] LABS: ALT 45 U/L (4-49); AST 26 U/L (17-59); African American GFR (CKD) >90 (>60 ml/min/1.73 sqM); Albumin 4.5 g/dL (3.5-5.0); Alkaline Phosphatase 55 U/L (38-126); Amylase 51 U/L (30-110); Anion Gap 8 mmol/L; Blood Urea Nitrogen 8 mg/dL (9-20); Calcium 9.8 mg/dL (8.4-10.2); Carbon Dioxide 25 mmol/L (22-30); Chloride 104 mmol/L (98-107); Glucose 85 mg/dL (74-99); Lipase 39 U/L (23-300); Non-African American GFR(CKD) >90 (>60 ml/min/1.73 sqM); Potassium 4.5 mmol/L (3.5-5.1); Sodium 137 mmol/L (137-145); Total Bilirubin 0.6 mg/dL (0.2-1.3); Total Protein 7.4 g/dL (6.3-8.2)
[2024-03-28 16:15] LABS: Basophils % (A) 0 %; Eosinophils # (A) 0.2 k/uL (0-0.7); Eosinophils % (A) 2 %; HCT 47.7 % (39.0-53.0); HGB 15.2 gm/dL (13.0-17.5); Lymphocytes # (A) 1.6 k/uL (1.0-4.8); Lymphocytes % (A) 15 %; MCH 28.8 pg (25.0-35.0); MCV 90.1 fL (80.0-100.0); Mean Platelet Volume 6.8; Monocytes % (A) 9 %; Neutrophils % (A) 73 %; Platelet Count 442 k/uL (150-450); RBC 5.29 m/uL (4.30-5.90); WBC 10.9 k/uL (3.8-10.6)
[2024-03-28 20:18] LABS: Appearance,Urine Clear (Clear); Bilirubin,Urine Negative (Negative); Blood,Urine Negative (Negative); Color,Urine Colorless; Glucose,Urine (UA) Negative (Negative); Ketones,Urine Negative (Negative); Leukocyte Esterase,Urine Negative (Negative); Nitrite,Urine Negative (Negative); Protein,Urine Negative (Negative); Specific Gravity,Urine 1.001 (1.001-1.035); Urobilinogen,Urine <2.0 mg/dL (<2.0)
[2024-03-28] MEDS: KETOROLAC 15 MG/ML 1 ML VIAL IVP STA (20:24)
[2024-03-28] MEDS: SODIUM CHLORIDE 0.9% 1,000 ML IV STA (20:25)
[2024-03-28] MEDS: PANTOPRAZOLE 40 MG/10 ML VIAL IVP STA (20:26)
--- NOTE | 2024-03-28 20:38 | CT ---
EXAMINATION TYPE: CT abdomen pelvis w con DATE OF EXAM: 03/28/2024 COMPARISON: CT 08/14/2023 HISTORY: abdominal pain CT DLP: 2125.4 mGycm, Automated Exposure Control for Dose Reduction was Utilized. CONTRAST: CT scan of the abdomen and pelvis is performed with oral and with IV Contrast, patient inje cted with 100 ml mL of Isovue 300. FINDINGS: LUNG BASES: No acute process. LIVER/GB: No significant abnormality is appreciated. PANCREAS: No significant abnormality is seen. SPLEEN: No significant abnormality is seen. ADRENALS: No significant abnormality is seen. KIDNEYS: No acute process or focal findings. BOWEL: No dilated loops of bowel. There is subtle pericolonic edematous reticulation/inflammatory mario nge at the junction of the descending and sigmoid colon (image [phone] of [phone]), at the same location of pr evious proximal sigmoid colon moderate diverticulitis seen on 08/14/2023. PROSTATE/SEMINAL VESICLES: No gross abnormality seen. LYMPH NODES: No greater than 1cm abdominal or pelvic lymph nodes are appreciated. OSSEOUS STRUCTURES: No significant abnormality is seen. OTHER: No significant additional abnormality is seen. IMPRESSION: Subtle diverticulitis at the same location as seen on 08/14/2023.
[2024-03-28] MEDS: AMOXIC-POT CLAV 875MG STARTER PACK 2 TAB BTL PO STA (21:03)
[2024-03-28] MEDS: ACET/COD 300 MG/30 MG STARTER PACK 6 TAB BTL PO STA (21:03)
[2024-03-28] MEDS: IBUPROFEN 600 MG STARTER PACK 4 TAB BTL PO STA (21:03)
[2024-03-28] MEDS: ONDANSETRON 4 MG ODT STARTER PACK 2 TAB BTL PO STA (21:04)
[2024-03-28] MEDS: MORPHINE SULFATE 4 MG/ML SYRINGE IVP STA (21:04)
[2024-03-28] MEDS: AMPICILLIN-SULBACTAM 3 GM in SODIUM CHLORIDE 0.9% 100 ML IVPB STA (21:16)
[2024-03-28 21:54] VITALS: BP 142/87; PULSE 91; RESP 18
== END 2024-03-28 21:55 | disposition home or self-care (01) ==
LOC: EC 14:31
DX: K57.32 Diverticulitis of large intestine without perforation or abscess without bleeding (principal); F17.290 Nicotine dependence, other tobacco product, uncomplicated; F12.90 Cannabis use, unspecified, uncomplicated
CPT/HCPCS: 99284 ×2; 96365 ×2; 96375 ×4; 96361 ×2; 36415; 80053; 82150; 83605; 83690; 85025; 81003; 74177; J2270; J0295; J1885; S0119; C9113; Q9967

== ENCOUNTER 2024-04-30 13:27 | Emergency (ER) | payer OTHER ==
[2024-04-30 13:37] VITALS: RESP 18
--- NOTE | 2024-04-30 14:00 | ED ---
Abdominal Pain HPI - General Source: patient, RN notes reviewed Mode of arrival: ambulatory Limitations: no limitations <Sherley Mazariegos - Last Filed: 05/05/24 16:32> - General Source: patient, RN notes reviewed, old records reviewed Mode of arrival: ambulatory Limitations: no limitations - History of Present Illness MD Complaint: abdominal pain -: days(s) Location: epigastric, suprapubic Radiation: epigastric, suprapubic Migration to: suprapubic Quality: cramping, stabbing Consistency: constant Improves With: nothing Associated Symptoms: nausea, vomiting Treatments Prior to Arrival: other (0) <Angel Jones - Last Filed: 05/07/24 01:54> - General Chief Complaint: Abdominal Pain Stated Complaint: GI Issues Time Seen by Provider: 04/30/24 13:59 - History of Present Illness Initial Comments: Quick Note: This is a 28-year-old male who presents to the emergency department for abdominal pain. States that he has lower abdominal pain that started this morning. In July 2023 he had diverticulitis with a perforation and states that symptoms feel similar. He had minor nausea earlier that has since resolved. (Sherley Mazariegos) This is a 28-year-old male for evaluation of recurrent abdominal pain known history of diverticulitis (Angel Jones) - Related Data Previous Rx's Medication Instructions Recorded Acetaminophen Tab [Tylenol] 1,000 mg PO Q6HR PRN #30 tablet 08/14/23 Amoxic-Pot Clav 875-125Mg 1 tab PO Q12HR 10 Days #20 tab 08/14/23 [Augmentin 875-125] Amoxic-Pot Clav 875-125Mg 1 tab PO Q12HR #20 tablet 03/28/24 [Augmentin 875-125] Amoxic-Pot Clav 875-125Mg 1 tab PO Q12HR 7 Days #14 tab 04/30/24 [Augmentin 875-125] Allergies Allergy/AdvReac Type Severity Reaction Status Date / Time No Known Allergies Allergy Verified 04/30/24 13:37 Review of Systems ROS Other: All systems not noted in ROS Statement are negative. <Sherley Mazariegos - Last Filed: 05/05/24 16:32> ROS Other: All systems not noted in ROS Statement are negative. <RobertAngel - Last Filed: 05/07/24 01:54> ROS Statement: Those systems with pertinent positive or pertinent negative responses have been documented in the HPI. Past Medical History Past Medical History: No Reported History Additional Past Medical History / Comment(s): scoliosis History of Any Multi-Drug Resistant Organisms: None Reported Past Surgical History: Appendectomy Past Psychological History: ADD/ADHD, Anxiety, Depression Smoking Status: Vaper Past Alcohol Use History: Occasional Past Drug Use History: Marijuana <Sherley Mazariegos - Last Filed: 05/05/24 16:32> General Exam Limitations: no limitations <Sherley Mazariegos - Last Filed: 05/05/24 16:32> General appearance: alert, in no apparent distress, anxious Head exam: Present: atraumatic, normocephalic, normal inspection Eye exam: Present: normal appearance, PERRL, EOMI. Absent: scleral icterus, conjunctival injection, periorbital swelling ENT exam: Present: normal exam, mucous membranes moist Neck exam: Present: normal inspection. Absent: tenderness, meningismus, lymphadenopathy Respiratory exam: Present: normal lung sounds bilaterally. Absent: respiratory distress, wheezes, rales, rhonchi, stridor Cardiovascular Exam: Present: regular rate, normal rhythm, normal heart sounds. Absent: systolic murmur, diastolic murmur, rubs, gallop, clicks GI/Abdominal exam: Present: soft, normal bowel sounds. Absent: distended, tenderness, guarding, rebound, rigid Extremities exam: Present: normal inspection, full ROM, normal capillary refill. Absent: tenderness, pedal edema, joint swelling, calf tenderness Back exam: Present: normal inspection Neurological exam: Present: alert, oriented X3, CN II-XII intact Psychiatric exam: Present: normal affect, normal mood Skin exam: Present: warm, dry, intact, normal color. Absent: rash <Angel Jones Nile - Last Filed: 05/07/24 01:54> - General Exam Comments Initial Comments: Visual Physical Exam Vital signs reviewed General: Well-appearing, nontoxic, no acute distress. Head: Normocephalic, atraumatic Eyes: PERRLA, EOMI ENT: Airway patent Chest: Nonlabored breathing Skin: No visual rash, normal skin tone Neuro: Alert and oriented 3 Musculoskeletal: No gross abnormalities (Sherley Mazariegos) Course <AubreyserenityClifforde Nile - Last Filed: 05/07/24 01:54> Vital Signs 04/30/24 04/30/24 13:33 17:53 Temperature 98.0 F 98 F Pulse Rate 97 91 Respiratory 18 18 Rate Blood Pressure 126/83 121/86 O2 Sat by Pulse 98 98 Oximetry - Reevaluation(s) Reevaluation #1: Medical records reviewed (Angel Jones) Reevaluation #2: Patient symptoms improved (Angel Jones) Reevaluation #3: Patient informed of results questions answered (Angel Jones) Reevaluation #4: Was pt. sent in by a medical professional or institution (MOLLY Santos, CLINICAL INTERVIEWER, urgent care, hospital, or residential...) When possible be specific @ -no Did you speak to anyone other than the patient for history (EMS, parent, family, police, friend...)? What history was obtained from this source @ -no Did you review nursing and triage notes (agree or disagree)? Why? @ -agree Are old charts reviewed (outside hosp., previous admission, EMS record, old EKG, old radiological studies, urgent care reports/EKG's, residential records)? Report findings @ -yes Differential Diagnosis (chest pain, altered mental status, abdominal pain women, abdominal pain men, vaginal bleeding, weakness, fever, dyspnea, syncope, headache, dizziness, GI bleed, back pain, seizure, CVA, palpatations, mental health, musculoskeletal)? @ -prior EKG interpreted by me (3pts min.). @ -no X-rays interpreted by me (1pt min.). @ -no CT interpreted by me (1pt min.). @ -Yes positive for diverticulitis U/S interpreted by me (1pt. min.). @ -no What testing was considered but not performed or refused? (CT, X-rays, U/S, labs)? Why? @ -none What meds were considered but not given or refused? Why? @ -none Did you discuss the management of the patient with other professionals (professionals i.e. , MOLLY, CLINICAL INTERVIEWER, lab, RT, psych nurse, social work job titles, medical office specialist, teacher, water resources technical officer, lead case manager)? Give summary @ -no Was smoking cessation discussed for >3mins.? @ -no Was critical care preformed (if so, how long)? @ -no Were there social determinants of health that impacted care today? How? (Homelessness, low income, unemployed, alcoholism, drug addiction, transpor tation, low edu. Level, literacy, decrease access to med. care, assisted, rehab)? @ -none Was there de-escalation of care discussed even if they declined (Discuss DNR or withdrawal of care, Hospice)? DNR status @ -no What co-morbidities impacted this encounter? (DM, HTN, Smoking, COPD, CAD, Cancer, CVA, ARF, Chemo, Hep., AIDS, mental health diagnosis, sleep apnea, morbid obesity)? @ -none Was patient admitted / discharged? Hospital course, mention meds given and route, prescriptions, significant lab abnormalities, going to OR and other pertinent info. @ - 28 male with acute diverticulitis. Patient will follow-up with GI this time as he has not had follow-up in the past with his recurrent visits for diverticulitis Discharged Undiagnosed new problem with uncertain prognosis? @ -no Drug Therapy requiring intensive monitoring for toxicity (Heparin, Nitro, Insulin, Cardizem)? @ -no Were any procedures done? @ -no Diagnosis/symptom? @ -Diverticulitis Acute, or Chronic, or Acute on Chronic? @ -Acute Uncomplicated (without systemic symptoms) or Complicated (systemic symptoms)? @ -Complicated Side effects of treatment? @ -no Exacerbation, Progression, or Severe Exacerbation? @ -exacerbation Poses a threat to life or bodily function? How? (Chest pain, USA, OR, pneumonia, PE, COPD, DKA, ARF, appy, cholecystitis, CVA, Diverticulitis, Homicidal, Suicidal, threat to staff... and all critical care pts) @ -no (Angel Jones) Reevaluation #5: Differential Abdominal Pain Men: Appendicitis, cholecystitis, diverticulosis, ischemic bowel, pancreatitis, hepatitis, UTI, gastroenteritis, AAA, incarcerated hernia, bowel obstruction, constipation, inflammatory bowel, hepatitis, peptic ulcer disease, splenic infarction, perforated viscus, testicular torsion, this is not meant to be an all-inclusive list (Angel Jones) Medical Decision Making - Lab Data Result diagrams: 04/30/24 14:23 04/30/24 14:23 <Sherley Mazariegos - Last Filed: 05/05/24 16:32> - Lab Data Result diagrams: 04/30/24 14:23 04/30/24 14:23 - Radiology Data Radiology results: report reviewed (CT abdomen pelvis is positive for diverticulitis), image reviewed <Angel Jones - Last Filed: 05/07/24 01:54> - Medical Decision Making I performed the QuickNote portion of this chart. Signed Sherley Mazariegos PA-C. (Sherley Mazariegos) 28 male with acute diverticulitis. Patient will follow-up with GI this time as he has not had follow-up in the past with his recurrent visits for divertic ulitis (Angel Jones) - Lab Data Lab Results 04/30/24 04/30/24 04/30/24 Range/Units 14:23 14:23 14:23 WBC 16.1 H (3.8-10.6) k/uL RBC 5.08 (4.30-5.90) m/uL Hgb 15.2 (13.0-17.5) gm/dL Hct 45.9 (39.0-53.0) % MCV 90.5 (80.0-100.0) fL MCH 29.9 (25.0-35.0) pg MCHC 33.1 (31.0-37.0) g/dL RDW 12.8 (11.5-15.5) % Plt Count 445 (150-450) k/uL MPV 6.8 Neutrophils % 82 % Lymphocytes % 11 % Monocytes % 5 % Eosinophils % 1 % Basophils % 0 % Neutrophils # 13.2 H (1.3-7.7) k/uL Lymphocytes # 1.8 (1.0-4.8) k/uL Monocytes # 0.8 (0-1.0) k/uL Eosinophils # 0.2 (0-0.7) k/uL Basophils # 0.0 (0-0.2) k/uL Sodium 137 (137-145) mmol/L Potassium 4.9 (3.5-5.1) mmol/L Chloride 106 (98-107) mmol/L Carbon Dioxide 25 (22-30) mmol/L Anion Gap 6 mmol/L BUN 12 (9-20) mg/dL Creatinine 1.02 (0.66-1.25) mg/dL Est GFR (CKD-EPI)AfAm >90 (>60 ml/min/1.73 sqM) Est GFR (CKD-EPI)NonAf >90 (>60 ml/min/1.73 sqM) Glucose 89 (74-99) mg/dL Plasma Lactic Acid Mitul 0.9 (0.7-2.0) mmol/L Calcium 9.9 (8.4-10.2) mg/dL Total Bilirubin 0.7 (0.2-1.3) mg/dL AST 31 (17-59) U/L ALT 45 (4-49) U/L Alkaline Phosphatase 49 (38-126) U/L Total Protein 7.1 (6.3-8.2) g/dL Albumin 4.3 (3.5-5.0) g/dL Amylase 72 (30-110) U/L Lipase 140 (23-300) U/L Urine Color Urine Appearance (Clear) Urine pH (5.0-8.0) Ur Specific Benld (1.001-1.035) Urine Protein (Negative) Urine Glucose (UA) (Negative) Urine Ketones (Negative) Urine Blood (Negative) Urine Nitrite (Negative) Urine Bilirubin (Negative) Urine Urobilinogen (<2.0) mg/dL Ur Leukocyte Esterase (Negative) 04/30/24 Range/Units 14:30 WBC (3.8-10.6) k/uL RBC (4.30-5.90) m/uL Hgb (13.0-17.5) gm/dL Hct (39.0-53.0) % MCV (80.0-100.0) fL MCH (25.0-35.0) pg MCHC (31.0-37.0) g/dL RDW (11.5-15.5) % Plt Count (150-450) k/uL MPV Neutrophils % % Lymphocytes % % Monocytes % % Eosinophils % % Basophils % % Neutrophils # (1.3-7.7) k/uL Lymphocytes # (1.0-4.8) k/uL Monocytes # (0-1.0) k/uL Eosinophils # (0-0.7) k/uL Basophils # (0-0.2) k/uL Sodium (137-145) mmol/L Potassium (3.5-5.1) mmol/L Chloride (98-107) mmol/L Carbon Dioxide (22-30) mmol/L Anion Gap mmol/L BUN (9-20) mg/dL Creatinine (0.66-1.25) mg/dL Est GFR (CKD-EPI)AfAm (>60 ml/min/1.73 sqM) Est GFR (CKD-EPI)NonAf (>60 ml/min/1.73 sqM) Glucose (74-99) mg/dL Plasma Lactic Acid Mitul (0.7-2.0) mmol/L Calcium (8.4-10.2) mg/dL Total Bilirubin (0.2-1.3) mg/dL AST (17-59) U/L ALT (4-49) U/L Alkaline Phosphatase (38-126) U/L Total Protein (6.3-8.2) g/dL Albumin (3.5-5.0) g/dL Amylase (30-110) U/L Lipase (23-300) U/L Urine Color Yellow Urine Appearance Clear (Clear) Urine pH 5.5 (5.0-8.0) Ur Specific Benld 1.022 (1.001-1.035) Urine Protein Negative (Negative) Urine Glucose (UA) Negative (Negative) Urine Ketones Negative (Negative) Urine Blood Negative (Negative) Urine Nitrite Negative (Negative) Urine Bilirubin Negative (Negative) Urine Urobilinogen <2.0 (<2.0) mg/dL Ur Leukocyte Esterase Negative (Negative) Disposition Is patient prescribed a controlled substance at d/c from ED?: No <Sherley Mazariegos - Last Filed: 05/05/24 16:32> Time of Disposition: 16:00 <Angel Jones - Last Filed: 05/07/24 01:54> Clinical Impression: Abdominal pain, Diverticulitis Disposition: HOME SELF-CARE Condition: Fair Instructions (If sedation given, give patient instructions): Diverticulitis (ED), Diverticulitis Diet (ED) Prescriptions: Amoxic-Pot Clav 875-125Mg [Augmentin 875-125] 1 tab PO Q12HR 7 Days #14 tab Referrals: Elyssa Moody MD [STAFF PHYSICIAN] - 1-2 days Lorena Owens MD [STAFF PHYSICIAN] - 1-2 days
[2024-04-30 14:47] LABS: Appearance,Urine Clear (Clear); Bilirubin,Urine Negative (Negative); Blood,Urine Negative (Negative); Color,Urine Yellow; Glucose,Urine (UA) Negative (Negative); Ketones,Urine Negative (Negative); Leukocyte Esterase,Urine Negative (Negative); Nitrite,Urine Negative (Negative); PH, Urine 5.5 (5.0-8.0); Protein,Urine Negative (Negative); Specific Gravity,Urine 1.022 (1.001-1.035); Urobilinogen,Urine <2.0 mg/dL (<2.0)
[2024-04-30 14:48] LABS: Basophils % (A) 0 %; Eosinophils # (A) 0.2 k/uL (0-0.7); Eosinophils % (A) 1 %; HCT 45.9 % (39.0-53.0); HGB 15.2 gm/dL (13.0-17.5); Lymphocytes # (A) 1.8 k/uL (1.0-4.8); Lymphocytes % (A) 11 %; MCH 29.9 pg (25.0-35.0); MCHC 33.1 g/dL (31.0-37.0); MCV 90.5 fL (80.0-100.0); Mean Platelet Volume 6.8; Monocytes # (A) 0.8 k/uL (0-1.0); Monocytes % (A) 5 %; Neutrophils # (A) 13.2 k/uL (1.3-7.7); Neutrophils % (A) 82 %; Platelet Count 445 k/uL (150-450); RBC 5.08 m/uL (4.30-5.90); RDW 12.8 % (11.5-15.5); WBC 16.1 k/uL (3.8-10.6)
[2024-04-30 15:02] LABS: ALT 45 U/L (4-49); AST 31 U/L (17-59); African American GFR (CKD) >90 (>60 ml/min/1.73 sqM); Albumin 4.3 g/dL (3.5-5.0); Alkaline Phosphatase 49 U/L (38-126); Amylase 72 U/L (30-110); Anion Gap 6 mmol/L; Blood Urea Nitrogen 12 mg/dL (9-20); Calcium 9.9 mg/dL (8.4-10.2); Carbon Dioxide 25 mmol/L (22-30); Chloride 106 mmol/L (98-107); Glucose 89 mg/dL (74-99); Lipase 140 U/L (23-300); Non-African American GFR(CKD) >90 (>60 ml/min/1.73 sqM); Potassium 4.9 mmol/L (3.5-5.1); Sodium 137 mmol/L (137-145); Total Bilirubin 0.7 mg/dL (0.2-1.3); Total Protein 7.1 g/dL (6.3-8.2)
--- NOTE | 2024-04-30 15:10 | CT ---
EXAMINATION TYPE: CT abdomen pelvis w con DATE OF EXAM: 04/30/2024 COMPARISON: 03/28/2024 HISTORY: LLQ pain, nausea CT DLP: 1604.9 mGycm CONTRAST: CT scan of the abdomen and pelvis is performed without Oral Contrast and with IV Contrast, patient in jected with 100 mL of Isovue 300. FINDINGS: LUNG BASES-: No visible nodule. No infiltrate. LIVER/GB: No calcified gallstones. Mild hepatic steatosis. No space occupying hepatic lesion. Bili benitez tree is of normal caliber. PANCREAS: No inflammation. No distinct mass. SPLEEN: No splenic enlargement. No lesion seen. ADRENALS: No nodule. No thickening. KIDNEYS/BLADDER: No hydronephrosis. No nephrolithiasis. No distinct renal mass. Urinary bladder g rossly unremarkable. BOWEL: Appendectomy changes noted. Recurrent mild diverticulitis noted at the descending colonic/sigm oid colonic junction. There is mild wall thickening and stranding noted in this region. There is no e vidence for abscess or free air. GENITAL ORGANS: No gross abnormality. LYMPH NODES: No greater than 1cm abdominal or pelvic lymph nodes are appreciated. AORTA: No significant abnormality. OSSEOUS STRUCTURES: No significant abnormality is seen. OTHER: No significant additional abnormality is seen. IMPRESSION: 1. Recurrent mild diverticulitis noted at the descending colonic/sigmoid colonic junction.
[2024-04-30] MEDS: ONDANSETRON ODT 4 MG TAB PO STA (17:30)
[2024-04-30] MEDS: IBUPROFEN 600 MG STARTER PACK 4 TAB BTL PO STA (17:31)
[2024-04-30] MEDS: AMOXIC-POT CLAV 875-125MG 1 EACH TAB PO STA (17:31)
[2024-04-30] MEDS: AMOXIC-POT CLAV 875MG STARTER PACK 2 TAB BTL PO STA (17:31)
[2024-04-30] MEDS: ACET/COD 300 MG/30 MG STARTER PACK 6 TAB BTL PO STA (17:32)
[2024-04-30] MEDS: ONDANSETRON 4 MG ODT STARTER PACK 2 TAB BTL PO STA (17:32)
[2024-04-30 17:54] VITALS: BP 121/86; PULSE 91; TEMP 98
== END 2024-04-30 17:54 | disposition home or self-care (01) ==
LOC: EC 13:27
DX: K57.92 Diverticulitis of intestine, part unspecified, without perforation or abscess without bleeding (principal); F17.290 Nicotine dependence, other tobacco product, uncomplicated
CPT/HCPCS: 36415; 80053; 82150; 83605; 83690; 85025; 81003; 74177; 99285; S0119; Q9967

== ENCOUNTER 2024-12-11 17:12 | Emergency (ER) | payer OTHER ==
[2024-12-11 17:33] VITALS: TEMP 98
--- NOTE | 2024-12-11 17:57 | ED ---
Abdominal Pain HPI - General Source: patient, RN notes reviewed Mode of arrival: ambulatory Limitations: no limitations <Bhumi Campos - Last Filed: 12/11/24 17:55> <Paulino Pace - Last Filed: 12/14/24 18:04> - General Chief Complaint: Abdominal Pain Stated Complaint: acid reflux Time Seen by Provider: 12/11/24 17:55 - History of Present Illness Initial Comments: Quick [id number] male presenting for heartburn x 2 days. Reports he has tried [id number] medications with no relief. Endorses nausea but denies vomiting. Reports the only thing that mildly relieves the pain is alkaline water. He was recently admitted to the hospital 2 weeks ago for perforated bowel. (Bhumi Campos) 29-year-old male presenting with chief complaint of persistent acid reflux. This has been ongoing for the last 2 days. He has a burning pain in his chest and upper abdomen that is worse after he eats or drinks. He has nausea with no vomiting. He has tried some [id number] medications which temporarily helped but not much. He reports he has been drinking alkaline water which seems to help a bit. He is having no difficulty breathing. No fever. No hematemesis, hematochezia, melena. He does have history of recent admission for perforated diverticulitis 2 weeks ago. He is supposed be having upcoming appointment with Dr. Owens. Patient is also complaining of some painful sores. He has a scabbed and crusted lesion on the lower lip and some painful white sores at the tip of his tongue. (Paulino Pace) - Related Data Previous Rx's Medication Instructions Recorded Acetaminophen Tab [Tylenol] 1,000 mg PO Q6HR PRN #30 tablet 11/21/24 Ibuprofen [Motrin] 600 mg PO Q8HR PRN #30 tab 11/21/24 cefuroxime axetiL [Ceftin] 500 mg PO BID 14 Days #28 tab 11/21/24 metroNIDAZOLE [Flagyl] 500 mg PO TID 14 Days #42 tab 11/21/24 Cephalexin [Keflex] 500 mg PO Q6HR 7 Days #28 cap 12/11/24 Lidocaine Viscous [Xylocaine 5 ml PO BID PRN #100 ml 12/11/24 Viscous 2%] Pantoprazole [Protonix] 40 mg PO DAILY #30 tab 12/11/24 Sucralfate [Carafate] 1 gm PO BID #30 tablet 12/11/24 Allergies Allergy/AdvReac Type Severity Reaction Status Date / Time No Known Allergies Allergy Verified 12/11/24 17:33 Review of Systems ROS Other: All systems not noted in ROS Statement are negative. <Bhumi Campos - Last Filed: 12/11/24 17:55> ROS Other: All systems not noted in ROS Statement are negative. <Paulino Pace - Last Filed: 12/14/24 18:04> ROS Statement: Those systems with pertinent positive or pertinent negative responses have been documented in the HPI. Past Medical History Past Medical History: No Reported History Additional Past Medical History / Comment(s): scoliosis History of Any Multi-Drug Resistant Organisms: None Reported Past Surgical History: Appendectomy Past Psychological History: ADD/ADHD, Anxiety, Depression Smoking Status: Current every day smoker, Vaper Past Alcohol Use History: Occasional Past Drug Use History: Marijuana <Bhumi Campos - Last Filed: 12/11/24 17:55> General Exam Limitations: no limitations <Bhumi Campos - Last Filed: 12/11/24 17:55> Limitations: no limitations General appearance: alert, in no apparent distress Head exam: Present: atraumatic, normocephalic, normal inspection Eye exam: Present: normal appearance, EOMI Neck exam: Present: normal inspection. Absent: meningismus Respiratory exam: Present: normal lung sounds bilaterally. Absent: respiratory distress, wheezes, rales, rhonchi, stridor Cardiovascular Exam: Present: regular rate, normal rhythm, normal heart sounds. Absent: systolic murmur, diastolic murmur, rubs, gallop, clicks GI/Abdominal exam: Present: soft. Absent: distended, tenderness, guarding, rebound, rigid Neurological exam: Present: alert, oriented X3 Psychiatric exam: Present: normal affect, normal mood Skin exam: Present: warm, dry, normal color <Paulino Pace - Last Filed: 12/14/24 18:04> - General Exam Comments Initial Comments: Visual Physical Exam Vital signs reviewed General: Well-appearing, nontoxic, no acute distress. Head: Normocephalic, atraumatic Eyes: PERRLA, EOMI ENT: Airway patent Chest: Nonlabored breathing Skin: No visual rash, normal skin tone Neuro: Alert and oriented 3 Musculoskeletal: No gross abnormalities (Bhumi Campos) Course Vital Signs 12/11/24 12/11/24 17:30 21:39 Temperature 98 F Pulse Rate 108 H 94 Respiratory 18 20 Rate Blood Pressure 136/102 134/84 O2 Sat by Pulse 99 99 Oximetry Medical Decision Making <AndresMiracleBhumi - Last Filed: 12/11/24 17:55> - Lab Data Result diagrams: 12/11/24 19:41 12/11/24 19:41 <KatelynnJohnplacido - Last Filed: 12/14/24 18:04> - Medical Decision Making I completed the quick note portion of this chart signed Bhumi Campos PA-C (Bhumi Campos) Was pt. sent in by a medical professional or institution ([facility], [facility] [employer], urgent care, hospital, or snf...) When possible be specific @ -No Did you speak to anyone other than the patient for history (EMS, parent, family, police, friend...)? What history was obtained from this source @ -No Did you review nursing and triage notes (agree or disagree)? Why? @ -I reviewed and agree with nursing and triage notes Were old charts reviewed (outside hosp., previous admission, EMS record, old EKG, old radiological studies, urgent care reports/EKG's, snf records)? Report findings @ -No old charts were reviewed Differential Diagnosis (chest pain, altered mental status, abdominal pain women, abdominal pain men, vaginal bleeding, weakness, fever, dyspnea, syncope, headache, dizziness, GI bleed, back pain, seizure, CVA, palpatations, mental health, musculoskeletal)? @ -Differential includes GERD, ACS, esophagitis, allergic reaction, bronchitis, not an all-inclusive list EKG interpreted by me (3pts min.). @ -EKG shows sinus tachycardia ventricular rate 102. TN interval 136. QRS 94. QT 321. QTc 380. X-rays interpreted by me (1pt min.). @ -Chest x-ray shows no acute process CT interpreted by me (1pt min.). @ -None done U/S interpreted by me (1pt. min.). @ -None done What testing was considered but not performed or refused? (CT, X-rays, U/S, labs)? Why? @ -None What meds were considered but not given or refused? Why? @ -None Did you discuss the management of the patient with other professionals (professionals i.e. , [facility], [employer], lab, RT, psych nurse, social security assessor, attraction attendant, teacher, chief strategy officer, transplant case manager)? Give summary @ -No Was smoking cessation discussed for >3mins.? @ -No Was critical care preformed (if so, how long)? @ -No Were there social determinants of health that impacted care today? How? ( Homelessness, low income, unemployed, alcoholism, drug addiction, transportation, low edu. Level, literacy, decrease access to med. care, correction, rehab)? @ -No Was there de-escalation of care discussed even if they declined (Discuss DNR or withdrawal of care, Hospice)? DNR status @ -No What co-morbidities impacted this encounter? (DM, HTN, Smoking, COPD, CAD, Cancer, CVA, ARF, Chemo, Hep., AIDS, mental health diagnosis, sleep apnea, morbid obesity)? @ -None Was patient admitted / discharged? Hospital course, mention meds given and route, prescriptions, significant lab abnormalities, going to OR and other pertinent info. @ -29-year-old male presenting with chief complaint of GERD. He is having burning pain that is worse after he eats or drinks. Workup is initiated by triage. Patient is later placed in a hallway bed and evaluated by myself. Lab work requires no immediate action. Chest x-ray shows no acute process. EKG shows sinus tachycardia with rate of 102. Patient reports some improvement after Maalox with lidocaine, Protonix, Carafate. Patient is also complaining of some sores on his mouth and lip. Patient does have a honey crusted sore near his lower lip, we will treat for impetigo with Bactroban and Keflex. He does have several aphthous ulcers at the tip of his tongue that he states are quite painful. He is prescribed some viscous lidocaine for home for this. He will be following up with Dr. Owens soon after recent perforated diverticulitis and will bring up this issue with her as well in case he needs an upper GI scope for possible esophagitis or other etiology. Follow-up with PCP. Report back to ER with any new or worsening symptoms. Discussed return parameters and answered all questions. Patient conveyed verbal understanding and agreed to the plan. I discussed this case in detail with my attending Dr. Waters Undiagnosed new problem with uncertain prognosis? @ -No Drug Therapy requiring intensive monitoring for toxicity (Heparin, Nitro, Insulin, Cardizem)? @ -No Were any procedures done? @ -No Diagnosis/symptom? @ -GERD, aphthous ulcers, impetigo Acute, or Chronic, or Acute on Chronic? @ -Acute Uncomplicated (without systemic symptoms) or Complicated (systemic symptoms)? @ -Uncomplicated Side effects of treatment? @ -No Exacerbation, Progression, or Severe Exacerbation? @ -No Poses a threat to life or bodily function? How? (Chest pain, USA, CA, pneumonia, PE, COPD, DKA, ARF, appy, cholecystitis, CVA, Diverticulitis, Homicidal, Suicidal, threat to staff... and all critical care pts) @ -Low likelihood (Paulino Pace) - Lab Data Lab Results 12/11/24 12/11/24 12/11/24 Range/Units 19:41 19:41 19:41 WBC 8.3 (3.8-10.6) k/uL RBC 5.51 (4.30-5.90) m/uL Hgb 15.1 D (13.0-17.5) gm/dL Hct 46.8 (39.0-53.0) % MCV 85.0 (80.0-100.0) fL MCH 27.4 (25.0-35.0) pg MCHC 32.2 (31.0-37.0) g/dL RDW 13.3 (11.5-15.5) % Plt Count 459 H (150-450) k/uL MPV 6.2 Neutrophils % 62 % Lymphocytes % 28 % Monocytes % 6 % Eosinophils % 2 % Basophils % 0 % Neutrophils # 5.2 (1.3-7.7) k/uL Lymphocytes # 2.3 (1.0-4.8) k/uL Monocytes # 0.5 (0-1.0) k/uL Eosinophils # 0.1 (0-0.7) k/uL Basophils # 0.0 (0-0.2) k/uL Sodium 136 L (137-145) mmol/L Potassium 4.5 (3.5-5.1) mmol/L Chloride 100 (98-107) mmol/L Carbon Dioxide 23 (22-30) mmol/L Anion Gap 13 mmol/L BUN 14 (9-20) mg/dL Creatinine 0.89 (0.66-1.25) mg/dL Est GFR (CKD-EPI)AfAm >90 (>60 ml/min/1.73 sqM) Est GFR (CKD-EPI)NonAf >90 (>60 ml/min/1.73 sqM) Glucose 78 (74-99) mg/dL Plasma Lactic Acid Mitul 0.7 (0.7-2.0) mmol/L Calcium 9.7 (8.4-10.2) mg/dL Total Bilirubin 0.9 (0.2-1.3) mg/dL AST 30 (17-59) U/L ALT 34 (4-49) U/L Alkaline Phosphatase 73 (38-126) U/L Total Protein 8.0 (6.3-8.2) g/dL Albumin 4.6 (3.5-5.0) g/dL Disposition <Bhumi Campos - Last Filed: 12/11/24 17:55> Is patient prescribed a controlled substance at d/c from ED?: No Time of Disposition: 21:17 <Paulino Pace - Last Filed: 12/14/24 18:04> Clinical Impression: Gastroesophageal reflux, Aphthous ulcer, Impetigo Disposition: HOME SELF-CARE Condition: Good Instructions (If sedation given, give patient instructions): Impetigo (ED), Diet for Stomach Ulcers and Gastritis (ED), Canker Sores (ED), GERD (Gastroesophageal Reflux Disease) (ED) Additional Instructions: Follow-up with your PCP and surgeon. Report back to ER with any new or worsening symptoms. Apply Bactroban ointment to your sore on your lip 3 times a day Prescriptions: Sucralfate [Carafate] 1 gm PO BID #30 tablet Cephalexin [Keflex] 500 mg PO Q6HR 7 Days #28 cap Pantoprazole [Protonix] 40 mg PO DAILY #30 tab Lidocaine Viscous [Xylocaine Viscous 2%] 5 ml PO BID PRN #100 ml PRN Reason: Pain Referrals: None,Stated [Primary Care Provider] - 1-2 days Lorena Owens MD [STAFF PHYSICIAN] - 1-2 days Forms: [facility] PCPs
[2024-12-11 19:49] LABS: Basophils % (A) 0 %; Eosinophils # (A) 0.1 k/uL (0-0.7); Eosinophils % (A) 2 %; HCT 46.8 % (39.0-53.0); Lymphocytes # (A) 2.3 k/uL (1.0-4.8); Lymphocytes % (A) 28 %; MCH 27.4 pg (25.0-35.0); MCHC 32.2 g/dL (31.0-37.0); Mean Platelet Volume 6.2; Monocytes # (A) 0.5 k/uL (0-1.0); Monocytes % (A) 6 %; Neutrophils # (A) 5.2 k/uL (1.3-7.7); Neutrophils % (A) 62 %; Platelet Count 459 k/uL (150-450); RBC 5.51 m/uL (4.30-5.90); RDW 13.3 % (11.5-15.5); WBC 8.3 k/uL (3.8-10.6)
[2024-12-11 20:00] LABS: ALT 34 U/L (4-49); AST 30 U/L (17-59); African American GFR (CKD) >90 (>60 ml/min/1.73 sqM); Albumin 4.6 g/dL (3.5-5.0); Alkaline Phosphatase 73 U/L (38-126); Anion Gap 13 mmol/L; Blood Urea Nitrogen 14 mg/dL (9-20); Calcium 9.7 mg/dL (8.4-10.2); Carbon Dioxide 23 mmol/L (22-30); Chloride 100 mmol/L (98-107); Glucose 78 mg/dL (74-99); Non-African American GFR(CKD) >90 (>60 ml/min/1.73 sqM); Potassium 4.5 mmol/L (3.5-5.1); Sodium 136 mmol/L (137-145); Total Bilirubin 0.9 mg/dL (0.2-1.3)
[2024-12-11 20:18] LABS: HGB 15.1 gm/dL (13.0-17.5)
[2024-12-11] MEDS: SUCRALFATE 1 GM TAB PO STA (20:19)
[2024-12-11] MEDS: LIDOCAINE VISCOUS 2% 15 ML CUP PO ONE (20:24)
[2024-12-11] MEDS: PANTOPRAZOLE 40 MG/10 ML VIAL IVP STA (20:24)
[2024-12-11] MEDS: MAG HYDROX/AL HYDROX/SIMETH 30 ML CUP PO STA (20:24)
--- NOTE | 2024-12-11 20:31 | XR ---
EXAMINATION TYPE: XR chest 2V DATE OF EXAM: 12/11/2024 8:17 PM COMPARISON: Chest x-ray May 31, 2021 CLINICAL INDICATION: Male, 29 years old with history of pain, TECHNIQUE: Frontal and lateral views of the chest are obtained. FINDINGS: There is no focal air space opacity, pleural effusion, or pneumothorax seen. The cardiac silhouette size is stable and within normal limits. The osseous structures are intact. IMPRESSION: No acute cardiopulmonary process. No significant change from prior. [facility], , 12/11/2024 8:29 PM
[2024-12-11] MEDS: MUPIROCIN 2% OINT 22 GM TUBE TOPICAL ONE (21:32)
[2024-12-11] MEDS: CEPHALEXIN 500MG STARTER PACK 4 CAP BTL PO STA (21:33)
[2024-12-11 21:40] VITALS: BP 134/84; PULSE 94; RESP 20
== END 2024-12-11 21:40 | disposition home or self-care (01) ==
LOC: EC 17:12
DX: K21.9 Gastro-esophageal reflux disease without esophagitis (principal); K12.0 Recurrent oral aphthae; L01.00 Impetigo, unspecified; F17.290 Nicotine dependence, other tobacco product, uncomplicated
CPT/HCPCS: 36415; 93005; 80053; 83605; 85025; 71046; 99284; 96374; J2470